=== PATIENT | male | born 1950 | race Caucasian/White ===

== ENCOUNTER 2017-02-09 13:44 | Inpatient (IN) | payer MEDICARE, BC ==
[2017-02-09] VITALS (8 sets, daily range): BP systolic 149–178; BP diastolic 78–88; PULSE 80–92; RESP 17–18; TEMP 96.1–98; O2SAT 96–99
[~2017-02-09] VITALS: Ht 175.3 cm; Wt 87.1 kg
[2017-02-09] MEDS ORDERED: HYDROmorphone HCL PF 1 MG/ML VIAL ONE (13:50)
[2017-02-09] MEDS ORDERED: ONDANSETRON HCL 4 MG/2 ML VIAL ONE (13:50)
--- NOTE | 2017-02-09 14:06 | PD ---
HPI Chief Complaint: Trauma (Alert) Time Seen by Provider: 14:02 Travel History International Travel<30 days: No Contact w/Intl Traveler<30days: No Traveled to known affect area: No History of Present Illness HPI Middle age male patient presents to the ER as a trauma alert, apparently had gone to cut a tree and an hour later was found on the ground according to family , when EMS got there they noted a right proximal tibial deformity, patient was repetitive questioning, he does not remember the events, just that he was cutting a tree. He denies any other injuries. Modifying Factors: None Associated Signs & Symptoms: Injury while cutting a tree, right tib-fib fracture , altered mental status Risk Factors: None PFSH Past Medical History Medical History: Denies Significant Hx Allergies-Medications (Allergen,Severity, Reaction): Coded Allergies: Iodinated Contrast- Oral and IV Dye (Verified Allergy, Unknown, itching, ) Reported Meds & Prescriptions Reported Meds & Active Scripts Active Reported Zocor (Simvastatin) 40 Mg Tab 40 Mg PO HS Effexor XR 24 HR (Venlafaxine HCl) 150 Mg Cap 150 Mg PO DAILY Review of Systems ROS Limitations: Altered Mental Status Physical Exam Narrative GENERAL: Well-developed middle age white male patient currently in mild distress. Awake, alert, but disoriented. In backboard and c-collar. SKIN: Focused skin assessment warm/dry. HEAD: Atraumatic. Normocephalic. Pupils are equal and reactive bilaterally. EYES: Pupils equal and round. No scleral icterus. No injection or drainage. ENT: No nasal bleeding or discharge. Mucous membranes pink and moist. NECK: Trachea midline. No JVD. In c-collar. CARDIOVASCULAR: Regular rate and rhythm. No murmur appreciated. RESPIRATORY: No accessory muscle use. Clear to auscultation. Breath sounds equal bilaterally. CHEST: Nontender throughout without deformity or crepitance. No retractions or use of accessory muscles. GASTROINTESTINAL: Abdomen soft, non-tender, nondistended. Hepatic and splenic margins not palpable. Pelvis: Stable and nontender to palpation. No obvious deformities. EXTREMITIES: No clubbing, cyanosis, or edema. There is notable deformity to the proximal tibia which is tender to palpation, neurovascularly intact below injury. MUSCULOSKELETAL: No obvious deformities. No clubbing. No cyanosis. No edema. NEUROLOGICAL: Awake and alert. No obvious cranial nerve deficits. Motor grossly within normal limits. Normal speech. PSYCHIATRIC: Appropriate mood and affect; insight and judgment normal. Data Data Last Documented VS Vital Signs Date Time Temp Pulse Resp B/P (MAP) Pulse Ox O2 Delivery O2 Flow Rate FiO2 02/09/17 14:38 97.8 86 17 160/79 (106) 99 Room Air 02/09/17 14:30 2.00 Orders Orders I-Stat Profile (02/09/17 13:49) I-Stat Creatinine (02/09/17 13:49) Complete Blood Count With Diff (02/09/17 13:49) Prothrombin Time / Inr (Pt) (02/09/17 13:49) Act Partial Throm Time (Ptt) (02/09/17 13:49) Type And Screen (02/09/17 13:49) Chest, Single Ap (02/09/17 13:49) Pelvis, Ap Only (Routine) (02/09/17 13:49) Ct Brain W/O Iv Contrast(Rout) (02/09/17 13:49) Ct Cerv Spine W/O Contrast (02/09/17 13:49) Iv Access Insert/Monitor (02/09/17 13:49) Ecg Monitoring (02/09/17 13:49) Oximetry (02/09/17 13:49) Oxygen Administration (02/09/17 13:49) Tibia/Fibula (Ap/Lat) (02/09/17 ) Hydromorphone Pf Inj (Dilaudid Pf Inj) (02/09/17 13:50) Ondansetron Inj (Zofran Inj) (02/09/17 13:50) Ct Abd/Pel W/O Iv Contrast (02/09/17 ) Ice Cuff (02/09/17 ) Splint Post Long Leg Ad Alum (02/09/17 ) Admit Order (Ed Use Only) (02/09/17 14:54) Consult Orthopedic (02/09/17 ) Labs Laboratory Tests Test 02/09/17 13:50 White Blood Count 8.1 TH/MM3 Red Blood Count 4.42 MIL/MM3 Hemoglobin 14.2 GM/DL Bedside Hemoglobin 13.6 G/DL Hematocrit 41.5 % Bedside Hematocrit 40.0 % Mean Corpuscular Volume 93.8 FL Mean Corpuscular Hemoglobin 32.1 PG Mean Corpuscular Hemoglobin Concent 34.3 % Red Cell Distribution Width 13.2 % Platelet Count 238 TH/MM3 Mean Platelet Volume 8.0 FL Neutrophils (%) (Auto) 61.0 % Lymphocytes (%) (Auto) 30.5 % Monocytes (%) (Auto) 7.5 % Eosinophils (%) (Auto) 0.7 % Basophils (%) (Auto) 0.3 % Neutrophils # (Auto) 5.0 TH/MM3 Lymphocytes # (Auto) 2.5 TH/MM3 Monocytes # (Auto) 0.6 TH/MM3 Eosinophils # (Auto) 0.1 TH/MM3 Basophils # (Auto) 0.0 TH/MM3 CBC Comment DIFF FINAL Differential Comment Bedside Sodium 142 MMOL/L Bedside Potassium 4.1 MMOL/L Bedside Chloride 104 MMOL/L Bedside Blood Urea Nitrogen 14 MG/DL Bedside Creatinine 1.1 MG/DL Bedside Glucose 132 MG/DL [facility] Medical Screen Exam Complete: Yes Emergency Medical Condition: Yes Medical Record Reviewed: Yes EKG Prior to Arrival: Yes Interpretation(s) Laboratory Tests Test 02/09/17 13:50 Red Blood Count 4.42 MIL/MM3 (4.50-5.90) Bedside Glucose 132 MG/DL (60-95) Last 24 hours Impressions Pelvis X-Ray 02/09/17 1349 Signed Impressions: Service Date/Time: January 13:37 - CONCLUSION: 1. No acute fracture identified. Dick Gallego MD Head CT 02/09/17 1349 Signed Impressions: Service Date/Time: January 14:04 - CONCLUSION: No acute disease. Pierre Barnes MD Chest X-Ray 02/09/17 1349 Signed Impressions: Service Date/Time: January 13:37 - CONCLUSION: 1. No acute abnormality identified. Dick Gallego MD Cervical Spine CT 02/09/17 1349 Signed Impressions: Service Date/Time: January 14:06 - CONCLUSION: No evidence of acute fracture. Chronic degenerative disease at the C5-6 level with narrowing and osteophyte formation. Central disc protrusionat the C4-5 level and a broad-based diffuse annular bulge at C6-7. Ole Martin MD Tibia/Fibula X-Ray 02/09/17 0000 Signed Impressions: Service Date/Time: January 13:37 - CONCLUSION: 1. Fractures of the tibia and fibula as above. Dick Gallego MD Abdomen/Pelvis CT 02/09/17 0000 Signed Impressions: Service Date/Time: January 14:11 - CONCLUSION: Normal examination. Ole Martin MD Differential Diagnosis Tib-fib fracture versus dislocations versus intracranial injuries versus concussion Narrative Course Case was discussed with trauma DrMary Kate Silvestre who states he will see the patient. X-ray show a comminuted left tib-fib fracture, and the leg was placed in a long-leg splint for stabilization. Patient is neurovascularly intact with good pulses. Orthopedics Dr. Linton as been contacted. Other CAT scans and x- rays did not show any signs of acute injuries. Planning to admit to trauma, case discussed with Dr Silvestre who agrees to admit. Trauma Alert - Level One Trauma Alert Level One: Full trauma team activate, Patient evaluated, Trauma surgeon summoned Time Surgeon Summoned: 13:20 Time Anesthesiologist Summoned: 13:23 Diagnosis Diagnosis: Primary Impression: Tibia/fibula fracture Additional Impression: Head injury Admitting Physician Requests: Admit Dustin Boyd MD Feb 09, 2017 14:06
--- NOTE | 2017-02-09 14:13 | RADRPT ---
EXAM DATE/TIME: 02/09/2017 13:37 [facility] COMPARISON: No previous studies available for comparison. INDICATIONS : Trauma Alert. MEDICAL HISTORY : Non-responsive. SURGICAL HISTORY : Non-responsive. ENCOUNTER: Initial ACUITY: 1 day PAIN SCORE: Non-responsive. LOCATION: Bilateral chest FINDINGS: The heart is at the upper limits of normal in size. There are chronic interstitial changes within the pulmonary parenchyma. The mediastinal contours are within normal limits. No pneumothorax is seen. Th e visualized bony structures are grossly intact. CONCLUSION: 1. No acute abnormality identified. Dick Gallego MD on February 09, 2017 at 14:11 Board Certified Radiologist. This report was verified electronically.
--- NOTE | 2017-02-09 14:14 | RADRPT ---
EXAM DATE/TIME: 02/09/2017 13:37 [facility] COMPARISON: No previous studies available for comparison. INDICATIONS : Trauma Alert. MEDICAL HISTORY : Non-responsive SURGICAL HISTORY : Non-responsive. ENCOUNTER: Initial ACUITY: 1 day PAIN SCORE: Non-responsive. LOCATION: Pelvis FINDINGS: Single view pelvis is provided. There is hardware overlying the patient's low pelvis. No definite fra cture is seen. There are mild degenerative changes in the hips bilaterally. CONCLUSION: 1. No acute fracture identified. Dick Gallego MD on February 09, 2017 at 14:12 Board Certified Radiologist. This report was verified electronically.
--- NOTE | 2017-02-09 14:15 | RADRPT ---
EXAM DATE/TIME: 02/09/2017 13:37 [facility] COMPARISON: No previous studies available for comparison. INDICATIONS : Trauma Alert. MEDICAL HISTORY : Non-responsive. SURGICAL HISTORY : Non-responsive. ENCOUNTER: Initial ACUITY: 1 day PAIN SCORE: Non-responsive. LOCATION: Left tib fib FINDINGS: AP and lateral views demonstrate a severely comminuted, moderately displaced and angulated fracture i nvolving the proximal left tibia. There is a one aren't present displaced, foreshortened fracture inv olving the proximal left fibula. The remainder the visualized osseous structures are intact. CONCLUSION: 1. Fractures of the tibia and fibula as above. Dick Gallego MD on February 09, 2017 at 14:13 Board Certified Radiologist. This report was verified electronically.
[2017-02-09 14:16] LABS: BASOPHIL % 0.3 % (0.0-2.0); EOSINOPHIL # 0.1 TH/MM3 (0-0.4); EOSINOPHIL % 0.7 % (0.0-4.0); HEMATOCRIT 41.5 % (39.0-51.0); HEMO FLAGS DIFF FINAL; LYMPH % 30.5 % (9.0-44.0); LYMPHOCYTE # 2.5 TH/MM3 (1.0-4.8); MEAN CELL VOLUME 93.8 FL (80.0-100.0); MEAN CORPUSCULAR HEMOGLOBIN 32.1 PG (27.0-34.0); MEAN CORPUSCULAR HGB CONC 34.3 % (32.0-36.0); MONO % 7.5 % (0.0-8.0); PLATELET COUNT 238 TH/MM3 (150-450); RED BLOOD COUNT 4.42 MIL/MM3 (4.50-5.90); RED CELL DISTRIBUTION WIDTH 13.2 % (11.6-17.2); WHITE BLOOD COUNT 8.1 TH/MM3 (4.0-11.0)
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
[2017-02-09 14:22] LABS: I-STAT POTASSIUM 4.1 MMOL/L (3.5-4.9)
[2017-02-09] MEDS ORDERED: EFFE150C PO (14:37)
[2017-02-09] MEDS ORDERED: ZOCO40TA PO (14:37)
--- NOTE | 2017-02-09 14:39 | RADRPT ---
EXAM DATE/TIME: 02/09/2017 14:06 [facility] COMPARISON: No previous studies available for comparison. INDICATIONS : Trauma alert, fall from tree. RADIATION DOSE: 18.58 CTDIvol (mGy) MEDICAL HISTORY : Non-responsive. SURGICAL HISTORY : Non-responsive. ENCOUNTER: Initial ACUITY: 1 day PAIN SCALE: Non-responsive LOCATION: neck TECHNIQUE: Volumetric scanning of the cervical spine was performed. Multiplanar reconstructions in the sagittal, coronal and oblique axial planes were performed. Using automated exposure control and adjustment o f the mA and/or kV according to patient size, radiation dose was kept as low as reasonably achievable to obtain optimal diagnostic quality images. DICOM format image data is available electronically f or review and comparison. FINDINGS: VERTEBRAE: Normal vertebral body height. Moderate intervertebral disc space narrowing at the C5-6 level ALIGNMENT: No evidence of subluxation. C2-C3: The bony spinal canal is normal in size. No evidence of disc bulge or herniation. The neural forami na are bilaterally patent. C3-C4: The bony spinal canal is normal in size. No evidence of disc bulge or herniation. The neural forami na are bilaterally patent. C4-C5: The bony spinal canal is normal in size. Small central disc protrusion. No evidence of disc herniat ion. The neural foramina are bilaterally patent. C5-C6: The bony spinal canal is normal in size. No evidence of disc bulge or herniation. The neural forami na are bilaterally patent. C6-C7: Broad-based diffuse annular bulge flattens the thecal sac. No evidence of disc bulge or herniation. The neural foramina are bilaterally patent. C7-T1: The bony spinal canal is normal in size. No evidence of disc bulge or herniation. The neural forami na are bilaterally patent. CONCLUSION: No evidence of acute fracture. Chronic degenerative disease at the C5-6 level with narrowing and oste ophyte formation. Central disc protrusionat the C4-5 level and a broad-based diffuse annular bulge at C6-7. Ole Martin MD on February 09, 2017 at 14:35 Board Certified Radiologist. This report was verified electronically.
--- NOTE | 2017-02-09 14:41 | RADRPT ---
EXAM DATE/TIME: 02/09/2017 14:11 [facility] COMPARISON: No previous studies available for comparison. INDICATIONS : Trauma alert, fall from tree. ORAL CONTRAST: No oral contrast ingested. RADIATION DOSE: 14.23 CTDIvol (mGy) MEDICAL HISTORY : Non-responsive. SURGICAL HISTORY : Non-responsive. ENCOUNTER: Initial ACUITY: 1 day PAIN SCALE: Non-responsive LOCATION: abdomen TECHNIQUE: Volumetric scanning of the abdomen and pelvis was performed. Using automated exposure control and ad justment of the mA and/or kV according to patient size, radiation dose was kept as low as reasonably achievable to obtain optimal diagnostic quality images. DICOM format image data is available electro nically for review and comparison. FINDINGS: LOWER LUNGS: The visualized lower lungs are clear. LIVER: Homogeneous density without lesion. There is no dilation of the biliary tree. No calcified gallston es. SPLEEN: Normal size without lesion. PANCREAS: Within normal limits. KIDNEYS: Normal in size and shape. There is no mass, stone, or hydronephrosis except for kidney stone left lo wer pole. ADRENAL GLANDS: Within normal limits. VASCULAR: There is no aortic aneurysm. BOWEL/MESENTERY: The stomach, small bowel, and colon demonstrate no acute abnormality. There is no free intraperitone al air or fluid. ABDOMINAL WALL: Within normal limits. RETROPERITONEUM: There is no lymphadenopathy. BLADDER: No wall thickening or mass. REPRODUCTIVE: Within normal limits. INGUINAL: There is no lymphadenopathy or hernia. MUSCULOSKELETAL: Within normal limits for patient age. CONCLUSION: Normal examination. Ole Martin MD on February 09, 2017 at 14:39 Board Certified Radiologist. This report was verified electronically.
[2017-02-09] MEDS ORDERED: oxyCODONE/ACETAMINOPHEN 5 MG/325 MG TAB PO PRN (15:15)
[2017-02-09] MEDS ORDERED: NALOXONE HCL 0.4 MG/ML AMP IV PUSH PRN (15:15)
[2017-02-09] MEDS ORDERED: MORPHINE SULFATE 4 MG/ML INJ IV PUSH PRN (15:15)
[2017-02-09] MEDS ORDERED: SODIUM CHLORIDE 0.9% FLUSH 10 ML FLUSH IV FLUSH PRN (15:15)
[2017-02-09] MEDS ORDERED: Post-op Orders (for Pharmacy) MISC XX ONE (15:15)
[2017-02-09] MEDS: SODIUM CHLOR 0.9% 1000 ML INJ 1,000 ML IV SCH (15:52)
[2017-02-09 15:59] LABS: APTT (PATIENT) 20.5 SEC (24.3-30.1)
[2017-02-09] MEDS ORDERED: ENOXAPARIN SODIUM 40 MG/0.4 ML SYRINGE SQ SCH (17:00)
[2017-02-09] MEDS: FAMOTIDINE 20 MG TAB PO SCH (21:00)
[2017-02-09] MEDS: MAGNESIUM HYDROXIDE SUSP 30 ML CUP PO SCH (21:00)
--- NOTE | 2017-02-09 22:40 | MH ---
cc: MD HERNANDEZ,[facility] DATE OF ADMISSION 02/09/[address] Silvestre ADMISSION DIAGNOSIS Comminuted right proximal tib-fib fracture and retrograde amnesia. HISTORY OF PRESENT DISEASE This middle-aged male presented to the emergency room as a trauma alert. Apparently, the patient was cutting some trees and was found on the ground according to family. We do not know what happened to him. He is noted to have right proximal pretibial swelling and deformity. Does not remember anything and keeps repeating questions, awake, alert, however. Does not complain about any other pain. PAST MEDICAL HISTORY Hypercholesterolemia. PAST SURGICAL HISTORY Negative. MEDICATIONS 1. Zocor. 2. Effexor. ALLERGIES IODINE BUT UNKNOWN REALLY. SOCIAL HISTORY Noncontributory. PHYSICAL EXAMINATION GENERAL: Reveals a middle-aged male in no acute distress. HEENT: Normocephalic. No trauma to the head. Pupils equally reactive. Extraocular muscles intact. No hemotympanum. No Mead sign or raccoon's eyes. NECK: Bilateral carotid pulses. No bruits. No signs of trauma to the neck. CHEST: Bilateral breath sounds. HEART: Regular rhythm. No signs of trauma to the chest. Hemodynamically, the patient is intact. ABDOMEN: Soft. Active bowel sounds. No rebound. No guarding. No masses. No signs of trauma to the abdomen. Pelvis appears to be stable. EXTREMITIES: The patient has bilateral femoral, popliteal, dorsalis pedis, posterior tibial pulses. He is very tender at the proximal tibia where there is swelling and slight deformity consistent with fracture, underlying, that has __ fracture of the same. NEUROLOGIC EXAMINATION: The patient is awake, alert and oriented, however, keeps repeating some of the questions and clearly does not remember any accidents. Moves all four extremities with limitation of the right leg which is tender. BACK: The patient is turned to the back, is log-rolled and no acute back injury is noted. The patient ___ to the trauma principals, taken to CT scan for further workup. FINAL DIAGNOSIS Right comminuted tib-fib closed fracture and loss of consciousness, retrograde amnesia. The patient is admitted to trauma service, further care per clinical indices. Eladia Silvestre SJ/EO /6:03 PM /10:21 PM
[2017-02-10 00:18] VITALS: BP 153/79; PULSE 83; RESP 18; TEMP 98.7; O2SAT 96
[2017-02-10 03:35] VITALS: BP 158/75; PULSE 84; RESP 18; TEMP 99.7; O2SAT 98
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
[2017-02-10 07:30] LABS: AUTOMATED NEUTROPHIL # 3.2 TH/MM3 (1.8-7.7); BASOPHIL % 0.3 % (0.0-2.0); EOSINOPHIL % 0.5 % (0.0-4.0); HEMATOCRIT 38.3 % (39.0-51.0); HEMO FLAGS DIFF FINAL; LYMPH % 27.9 % (9.0-44.0); LYMPHOCYTE # 1.5 TH/MM3 (1.0-4.8); MEAN CORPUSCULAR HEMOGLOBIN 32.1 PG (27.0-34.0); MEAN CORPUSCULAR HGB CONC 34.2 % (32.0-36.0); NEUT % 59.3 % (16.0-70.0); PLATELET COUNT 207 TH/MM3 (150-450); RED BLOOD COUNT 4.07 MIL/MM3 (4.50-5.90); RED CELL DISTRIBUTION WIDTH 13.3 % (11.6-17.2); WHITE BLOOD COUNT 5.4 TH/MM3 (4.0-11.0)
[2017-02-10] MEDS ORDERED: ENALAPRILAT 1.25 MG/ML VIAL IV PUSH PRN (07:45)
[2017-02-10 07:49] LABS: BICARBONATE 25.6 MEQ/L (21.0-32.0); POTASSIUM 4.1 MEQ/L (3.5-5.1)
[2017-02-10] MEDS ORDERED: GENTAMICIN SULFATE 80 MG/2 ML VIAL ONE (08:51)
[2017-02-10] MEDS ORDERED: FAMOTIDINE 20 MG/2 ML VIAL ONE ×2 (08:58→10:22)
[2017-02-10] MEDS ORDERED: ACETAMINOPHEN 1000 MG/100 ML 100 ML IV ONE ×2 (08:58→10:22)
[2017-02-10] MEDS: FAMOTIDINE 20 MG TAB PO SCH ×2 (09:00→22:17)
[2017-02-10] MEDS: DOCUSATE SODIUM 100 MG CAP PO SCH ×2 (09:00→22:16)
--- NOTE | 2017-02-10 09:06 | HHI.PR ---
Subjective Subjective Notes PTD: 1 0915: In OR. 1005: In OR 1100: In OR Objective Vitals/I&O Vital Signs Date Time Temp Pulse Resp B/P (MAP) Pulse Ox O2 Delivery O2 Flow Rate FiO2 02/10/17 03:35 99.7 84 18 158/75 (102) 98 02/09/17 16:55 Nasal Cannula 2.00 Labs Laboratory Tests Test 02/09/17 13:50 02/09/17 15:00 02/10/17 06:41 White Blood Count 8.1 5.4 Red Blood Count 4.42 4.07 Hemoglobin 14.2 13.1 Bedside Hemoglobin 13.6 Hematocrit 41.5 38.3 Bedside Hematocrit 40.0 Mean Corpuscular Volume 93.8 94.0 Mean Corpuscular Hemoglobin 32.1 32.1 Mean Corpuscular Hemoglobin Concent 34.3 34.2 Red Cell Distribution Width 13.2 13.3 Platelet Count 238 207 Mean Platelet Volume 8.0 7.1 Neutrophils (%) (Auto) 61.0 59.3 Lymphocytes (%) (Auto) 30.5 27.9 Monocytes (%) (Auto) 7.5 12.0 Eosinophils (%) (Auto) 0.7 0.5 Basophils (%) (Auto) 0.3 0.3 Neutrophils # (Auto) 5.0 3.2 Lymphocytes # (Auto) 2.5 1.5 Monocytes # (Auto) 0.6 0.7 Eosinophils # (Auto) 0.1 0.0 Basophils # (Auto) 0.0 0.0 CBC Comment DIFF FINAL DIFF FINAL Differential Comment Bedside Sodium 142 Bedside Potassium 4.1 Bedside Chloride 104 Bedside Blood Urea Nitrogen 14 Bedside Creatinine 1.1 Bedside Glucose 132 Prothrombin Time 11.0 Prothromb Time International Ratio 1.0 Activated Partial Thromboplast Time 20.5 Blood Urea Nitrogen 9 Creatinine 0.91 Random Glucose 111 Calcium Level 8.5 Sodium Level 138 Potassium Level 4.1 Chloride Level 106 Carbon Dioxide Level 25.6 Anion Gap 6 Estimat Glomerular Filtration Rate 72 Radiology Last Impressions Pelvis X-Ray 02/09/17 1349 Signed Impressions: Service Date/Time: January 13:37 - CONCLUSION: 1. No acute fracture identified. Dick Gallego MD Head CT 02/09/17 1349 Signed Impressions: Service Date/Time: January 14:04 - CONCLUSION: No acute disease. Pierre Barnes MD Chest X-Ray 02/09/17 1349 Signed Impressions: Service Date/Time: , February 09, 2017 13:37 - CONCLUSION: 1. No acute abnormality identified. Dick Gallego MD Cervical Spine CT 02/09/17 1349 Signed Impressions: Service Date/Time: , February 09, 2017 14:06 - CONCLUSION: No evidence of acute fracture. Chronic degenerative disease at the C5-6 level with narrowing and osteophyte formation. Central disc protrusionat the C4-5 level and a broad-based diffuse annular bulge at C6-7. Ole Martin MD Tibia/Fibula X-Ray 02/09/17 0000 Signed Impressions: Service Date/Time: January 13:37 - CONCLUSION: 1. Fractures of the tibia and fibula as above. Dick Gallego MD Abdomen/Pelvis CT 02/09/17 0000 Signed Impressions: Service Date/Time: January 14:11 - CONCLUSION: Normal examination. Ole Martin MD Narrative Exam IN OR A/P Problem List: (1) Head injury ICD Codes: S09.90XA - Unspecified injury of head, initial encounter Status: Acute (2) Tibia/fibula fracture ICD Codes: S82.209A - Unspecified fracture of shaft of unspecified tibia, initial encounter for closed fracture; S82.409A - Unspecified fracture of shaft of unspecified fibula, initial encounter for closed fracture Status: Acute Assessment and Plan [facility]: This is a this is a 66-year-old male who was up and cutting a tree, and then was found down on the ground an hour later. Repetitive questioning. INJURIES: CHI LEFT tib/fib fx Procedures: *02/10: LEFT tibia IM Nail Consults: Orthopedics. Case management. Diet: Regular diet. Tolerating po diet. Encourage good po intake with each meal. Pulmonary: Encourage good pulmonary toileting. IS at bedside and pt encouraged to use. Rationale for use explained to patient, and verbalized understanding. PAIN Management: [place] 10 mg every 3 hours. Morphine 4 mg every 3 hours breakthrough pain. Toradol 30 mg every 8 hours. Activity: OOB. PT and OT ordered. (NWB LLE) GI prophylaxis: Pepcid BID. Bowel regimen: Colace and MOM. LBM: 0 DVT prophylaxis: Mechanical VTE with SCDs. Chemical management with Lovenox 40 QD SQ. DC Planning: Case management consulted for assistance with final discharge disposition. Emotional support provided to patient and family at bedside and plan of care discussed. Discussed with RN at bedside. Patient is hemodynamically stable and being managed on the med/surg floor. The trauma team will round each day, and evaluate plan of care on a daily basis. RIGHT tib/fib fx Orthopedics consulted and assisting in management and care 02/10: LEFT tibia IM nail Pain management PT and OT ordered Encourage out of bed NWB LLE DVT prophylaxis Attending Statement The exam, history, and the medical decision-making described in the above note were completed with the assistance of the mid-level provider. I reviewed and agree with the findings presented. I attest that I had a [id number] encounter with the patient on the same day, and personally performed and documented my assessment and findings in the medical record. Abdominal exam: soft, non-tender on exam s/p orthopedic surgery, pain controlled, working with PT Problem Qualifiers (1) Head injury: Qualified Codes: S09.90XA - Unspecified injury of head, initial encounter (2) Tibia/fibula fracture: Qualified Codes: S82.209A - Unspecified fracture of shaft of unspecified tibia , initial encounter for closed fracture; S82.409A - Unspecified fracture of shaft of unspecified fibula, initial encounter for closed fracture Mariela Montiel Feb 10, 2017 09:06 Jone Sweet MD Feb 28, 2017 23:43
[2017-02-10] MEDS ORDERED: ceFAZolin 2 GM PREMIX 50 ML ONE (09:18)
[2017-02-10] MEDS ORDERED: VANCOMYCIN HCL 1000 MG VIAL ONE (09:18)
[2017-02-10] MEDS ORDERED: MIDAZOLAM HCL 2 MG/2 ML VIAL ONE (10:22)
[2017-02-10] MEDS ORDERED: MORPHINE SULFATE 4 MG/ML INJ IV PUSH PRN (10:45)
--- NOTE | 2017-02-10 10:48 | PD.OP ---
cc: Jesse Linton MD Operative Report Date of Surgery: Feb 10, 2017 Preoperative Diagnosis: Displaced left proximal tibial shaft fracture Postoperative Diagnosis: Procedure: Left tibia reduction and intramedullary nail fixation Anesthesia: Gen. Surgeon: Jesse Linton [employer] Physician(s): ALLI Armendariz PA-C The surgical procedure was assisted by my physician malt specifications control assistant. My P.A. presence was necessary throughout this case for the manipulation and positioning of the surgical extremity. My P.A. was assisting me throughout the duration of this procedure. The skill set of a physician malt specifications control assistant was medically necessary to complete this procedure. During the surgical case the automotive engineering technician was working at the back table and the physician malt specifications control assistant was directly assisting me. Operation and Findings: Implants: ITS [10]mm x [360]mm tibial nail Plan of activity: Nonweightbearing Patient was seen and examined preoperatively. An informed consent was obtained from patient after detailed discussion of risk and benefits. Risks of surgery include bleeding, infection, painful hardware, nonunion, malunion, leg length discrepancy, need for hardware removal, and medical complications associated with anesthesia including blood clots, stroke, heart attack, and were discussed. Operative site was marked. Patient was brought to the operating room placed on or table. Patient received IV antibiotics and was given IV sedation GETA. Operative leg was prepped with alcohol Hibiclens and draped in usual sterile fashion. Timeout procedure was performed Procedure began with reduction of fracture. 2 small incisions were made around the fracture site. A percutaneous clamp was placed. Traction was applied. Fracture was reduced. There was comminution of the fracture. The fracture reduced and excellent alignment was achieved. Fracture clamp was used to aid in reduction. Additional per case incisions were made around the fracture site. A 2 mm Steinmann pins were placed as blocking pins from anterior to posterior as well as from medial to lateral. Next a 3 cm incision was made proximal to the patella. Quadriceps tendon was split in line with fibers. Cannulas were placed in the patellofemoral joint to protect the articular surface at all times. A guidepin was placed into the tibia and advanced in the tibial canal. Fluoroscopy was used to confirm appropriate guidepin placement. An opening reamer was used to open the tibial canal. A ball-tipped guidewire was advanced down the tibial canal. Guidepin was passed across the fracture site into the center of the distal tibia. Fluoroscopy confirmed guidepin placement. The nail length was now measured. The fracture was now held in a reduced position and the canal was reamed. The canal was reamed up to appropriate size. A ITS nail was now selected. Next the nail was fully seated. Using perfect united [place] technique 2 distal interlocking screws were placed. Using the insertion handle as a guide 4 proximal interlocking screws were placed. The blocking pins were now removed and replaced with screws for additional stability. Fluoroscopy confirmed excellent of fracture with well- placed hardware. Incisions and the knee joint were thoroughly irrigated with sterile saline. Fascia was closed with #1 Vicryl, subcutaneous tissues closed with 3-0 Vicryl and skin was closed with lorie. Sterile dressings were applied. Patient was awakened and transferred to recovery in stable condition. Jesse Linton MD Feb 10, 2017 10:48
[2017-02-10] MEDS ORDERED: DO NOT ADM ANY ANTICOAGULANT DRUGS PRN (11:02)
--- NOTE | 2017-02-10 11:08 | PD.ORT.PN ---
Subjective Subjective Remarks POD 0 s/p IMN left tibia stable postoperatively Objective Vitals Vital Signs Date Time Temp Pulse Resp B/P (MAP) Pulse Ox O2 Delivery O2 Flow Rate FiO2 02/10/17 03:35 99.7 84 18 158/75 (102) 98 02/10/17 00:18 98.7 83 18 153/79 (103) 96 02/09/17 19:48 98.0 80 18 149/78 (101) 99 02/09/17 17:00 96.1 92 18 178/88 (118) 96 02/09/17 16:55 97.8 78 17 150/82 (104) 98 Nasal Cannula 2.00 02/09/17 15:58 16 02/09/17 15:48 97 Nasal Cannula 3.00 02/09/17 15:20 98.0 92 17 172/81 (111) 98 Nasal Cannula 2.00 02/09/17 14:38 97.8 86 17 160/79 (106) 99 Room Air 02/09/17 14:30 99 Nasal Cannula 2.00 02/09/17 14:30 18 99 Nasal Cannula 2.00 02/09/17 14:21 96 2.00 I/O 02/09/17 02/09/17 02/09/17 02/10/17 02/10/17 02/10/17 07:00 15:00 23:00 07:00 15:00 23:00 Intake Total 360 ml 0 ml 1300 ml Output Total 475 ml 100 ml Balance 360 ml -475 ml 1200 ml Intake Oral 360 ml 0 ml Other 1300 ml Output Urine Total 475 ml Estimated Blood Loss 100 ml # Voids 1 # Bowel Movements 0 0 Result Diagram: 02/10/17 0641 02/10/17 0641 Other Results Laboratory Tests Test 02/09/17 15:00 Prothromb Time International Ratio 1.0 RATIO Prothrombin Time 11.0 SEC (9.8-11.6) Imaging Last 24 hours Impressions Pelvis X-Ray 02/09/171348 Signed Impressions: Service Date/Time: January 13:37 - CONCLUSION: 1. No acute fracture identified. Dick Gallego MD Head CT 02/09/171348 Signed Impressions: Service Date/Time: January 14:04 - CONCLUSION: No acute disease. Pierre Barnes MD Chest X-Ray 02/09/179 Signed Impressions: Service Date/Time: January 13:37 - CONCLUSION: 1. No acute abnormality identified. Dick Gallego MD Cervical Spine CT 02/09/179 Signed Impressions: Service Date/Time: , February 09, 2017 14:06 - CONCLUSION: No evidence of acute fracture. Chronic degenerative disease at the C5-6 level with narrowing and osteophyte formation. Central disc protrusionat the C4-5 level and a broad-based diffuse annular bulge at C6-7. Ole Martin MD Objective Remarks LLE: dressings clean and dry. intact. noticeable swelling of lateral compartment Assessment & Plan Problem List: (1) Tibia/fibula fracture ICD Codes: S82.209A - Unspecified fracture of shaft of unspecified tibia, initial encounter for closed fracture; S82.409A - Unspecified fracture of shaft of unspecified fibula, initial encounter for closed fracture Status: Acute Assessment and Plan 1) Left proximal tibia shaft fracture s/p IMN - POD 0 -NWB -daily dressing changes -monitory swelling of lower leg -elevate -large ice bags -Toradol 30mg Q8hrs x 3 doses -when swelling appropriate and patient ambulating safely, ok for DC planning to home -CM for walker -f/u with Hoang or KEVIN in 2 weeks Graham Perez Feb 10, 2017 11:08
[2017-02-10] MEDS ORDERED: MEPERIDINE HCL 25 MG/ML VIAL ONE (11:12)
[2017-02-10] MEDS ORDERED: *morphine SULFATE 8 MG/ML PERIprocedure ONLY ONE ×2 (11:23→11:47)
[2017-02-10] MEDS: LACTATED RINGER'S 1000 ML INJ 1,000 ML IV SCH ×2 (11:30→22:00)
[2017-02-10 12:00] VITALS: BP 148/76; PULSE 105; RESP 18; TEMP 98.9; O2SAT 92
[2017-02-10] MEDS ORDERED: NEOSTIGMINE 3 MG/3 ML SYR IV ONE (12:00)
[2017-02-10] MEDS ORDERED: ROCURONIUM INJ 50 MG/5 ML SYRINGE IV PUSH ONE (12:00)
[2017-02-10] MEDS ORDERED: LIDOCAINE HCL 1% PF 5 ML AMPULE OTHER ONE (12:00)
[2017-02-10] MEDS ORDERED: PROPOFOL 200 MG/20 ML AMP IV ONE (12:00)
[2017-02-10] MEDS ORDERED: MIDAZOLAM HCL 2 MG/2 ML VIAL IV ONE (12:00)
[2017-02-10] MEDS ORDERED: ePHEDrine/NS 25 MG/5 ML SYR IV ONE (12:00)
[2017-02-10] MEDS ORDERED: ONDANSETRON HCL 4 MG/2 ML VIAL IV PUSH ONE (12:00)
[2017-02-10] MEDS ORDERED: GLYCOPYRROLATE 1 MG/5 ML SYRINGE IV PUSH ONE (12:00)
[2017-02-10] MEDS ORDERED: KETOROLAC TROMETHAMINE 30 MG/ML (IVP) VIAL IV PUSH ONE (12:00)
[2017-02-10] MEDS ORDERED: DEXAMETHASONE SOD PHOS 4 MG/ML VIAL IV ONE (12:00)
[2017-02-10] MEDS ORDERED: hydrALAZINE HCL 20 MG/ML VIAL IV ONE (12:00)
[2017-02-10] MEDS ORDERED: STERILE WATER FOR INJECTION 20 ML VIAL IV ONE (12:00)
[2017-02-10] MEDS: SODIUM CHLOR 0.9% 1000 ML INJ 1,000 ML IV SCH ×2 (12:00→22:00)
[2017-02-10] MEDS: KETOROLAC TROMETHAMINE 30 MG/ML (IVP) VIAL IVP SCH ×2 (12:47→22:17)
[2017-02-10] MEDS: CALCIUM/VITAMIN D 250 MG/125 U TAB PO SCH ×2 (12:47→17:20)
[2017-02-10] MEDS: VENLAFAXINE HCL XR 75 MG CAP PO SCH (12:47)
[2017-02-10] MEDS ORDERED: ERGOCALCIFEROL (VIT D2) 50,000 UNIT CAP PO SCH (13:00)
[2017-02-10] MEDS: ACETAMINOPHEN/HYDROcodone 325 MG/10 MG TAB PO PRN ×2 (13:02→22:19)
[2017-02-10] MEDS: SODIUM CHLORIDE 0.9% FLUSH 10 ML FLUSH IV FLUSH SCH ×2 (13:06→22:17)
--- NOTE | 2017-02-10 13:47 | EKG ---
Date Performed: 02/10/2017 Time Performed: 08:29:49 PTAGE: 89 years EKG: Sinus rhythm NORMAL ECG INTERPRETATION BASED ON A DEFAULT AGE OF 40 YEARS NO PREVIOUS TRACING DOCTOR: Ernesto Mike Interpretating Date/Time 02/10/2017 13:46:28
--- NOTE | 2017-02-10 14:32 | RADRPT ---
EXAM DATE/TIME: 02/10/2017 10:38 [facility] COMPARISON: TIBIA/FIBULA LEFT (AP/LAT), February 09, 2017, 13:37. INDICATIONS : Left tibia/fibula IM pedro. MEDICAL HISTORY : Non-responsive. SURGICAL HISTORY : Non-responsive. ENCOUNTER: Subsequent ACUITY: 1 day PAIN SCORE: Non-responsive. LOCATION: Left tibia/fibula. FINDINGS: Locking nail is seen bridging the fracture of the proximal tibia. Alignment is anatomic. Fibular fr actures again noted.. CONCLUSION: Anatomic alignment with IM pedro in good position. Luis Daniel Gallego MD FACR on February 10, 2017 at 14:30 Board Certified Radiologist. This report was verified electronically.
--- NOTE | 2017-02-10 15:42 | MB ---
cc: JESSE DEJESUS DATE OF CONSULTATION 02/09/1973 REASON FOR CONSULTATION Left proximal tibia and fibula fractures. HISTORY This patient known as Aron Yates is an approximately 60-year-old male who was cutting trees. He was found on the ground. He was found to have left proximal tibia fracture. He had some amnesia around the event. He initially had some mental status changes and confusions at presentation to the emergency room. He is currently awake and alert on the orthopedic floor. He complains of left leg pain. Pain is worse with movement. PAST MEDICAL HISTORY/ILLNESSES High cholesterol. SURGERIES None. MEDICATIONS 1. Zocor. 2. Effexor. ALLERGIES IODINE. SOCIAL HISTORY The patient denies tobacco or drug abuse. FAMILY HISTORY Noncontributory. REVIEW OF SYSTEMS The patient denies headache, visual changes, neck pain, chest pain, shortness of breath, abdominal pain, nausea, vomiting or recent weight loss. He complains of left leg pain. PHYSICAL EXAMINATION GENERAL: The patient is a pleasant male in no acute distress. He is awake and alert. He appears well-developed, well-nourished. VITAL SIGNS: Temperature 99.7, pulse 84, respirations 18, blood pressure 158/75, O2 sat 98% on 2 liters nasal cannula. HEAD: The patient is normocephalic. Pupils are equal. NECK: Soft, nontender. Trachea is midline. ABDOMEN: Soft, nontender, nondistended. EXTREMITIES: Examination of bilateral upper extremities reveals no obvious pain or deformity with shoulder, elbow or wrist motion. He has intact sensation in all fingers. He has good cap refill fingers. Window Decorator strength is +5. Radial pulses are palpable. Examination of right leg reveals no pain with hip, knee or ankle motion. Skin is intact. Dorsalis pedis pulses palpable. Sensation is intact. Examination of left leg reveals no tenderness on his hip. He is diffusely tender around the knee, calf and thigh compartments are soft. There is mild swelling around the knee. Skin is intact. Dorsalis pedis pulses palpable. Sensation intact to left foot. He has minimal pain with passive range of motion of his toes or ankle. X-RAYS X-rays of left leg were reviewed. The patient has a mildly comminuted displaced fracture along the proximal left tibia shaft. IMPRESSION Closed left proximal tibia shaft fracture. PLAN The treatment options were discussed with the patient. At this point I would recommend reduction, intramedullary nail fixation of left tibia. The risks of surgery include bleeding, infection, injury to arteries, nerves, blood vessels, nonunion, malunion, painful hardware as well as medical complications including blood clot, stroke, heart attack and . All questions were answered. I will plan on surgery today. All questions were answered. A mid-level provider in my office, nurse practitioner or PA, may see this patient on a follow-up basis and continue to implement the objective of this plan including: Starting or adjusting medications, injections of muscle, tendon, bursa or joints, cast application, orthotic or brace application, physical therapy, further radiographic studies including x-ray, MRI, CT, ultrasounds or bone scan, vascular studies, neurologic studies, or other specialist consultations, and proceeding with surgical management as appropriate. Jesse MD KELSEY Connors/LINDA /10:50 AM /3:28 PM
[2017-02-10 16:00] VITALS: BP 99/62; PULSE 85; RESP 18; TEMP 98.2; O2SAT 95
[2017-02-10] MEDS: ceFAZolin 2 GM PREMIX 50 ML IV SCH (17:20)
[2017-02-10 20:45] VITALS: BP_SYST 136; BP_SYST 140; BP_DIAS 56; BP_DIAS 76; PULSE 86; PULSE 91; RESP 16; RESP 17; TEMP 98; TEMP 98.7; O2SAT 98
[2017-02-10] MEDS ORDERED: DOCU1CAP39 PO (21:10)
[2017-02-10] MEDS ORDERED: WALKER WHEELS/F1 MIS (21:10)
[2017-02-10] MEDS ORDERED: MAGN400S PO (21:10)
--- NOTE | 2017-02-10 21:13 | HHI.FF ---
Face to Face Verification Diagnosis: (1) Head injury (2) Tibia/fibula fracture Physical Therapy Order: Evaluate and Treat, Improve ambulation, Strength and gait training Home Health Nursing Order: Medical education Signs/symptoms of disease process Medication education-adverse effect Nursing assessment with vital signs I have seen patient Artemio Gandhi on 02/10/17. My clinical findings support the need for the requested home health care services because: Ltd mobility - disease progression Deconditioned w/ increased weakness Limited ability to care for self High risk of falls I certify that my clinical findings support that this patient is homebound because: Post-op weakness Unsteady gait/balance Unsafe to leave home unassisted Mariela Montiel Feb 10, 2017 21:13
[2017-02-10] MEDS ORDERED: WHEEMIS3 (21:15)
[2017-02-10] MEDS ORDERED: BEDSIDE COMMODE1 MI1 (21:15)
[2017-02-10] MEDS: MAGNESIUM HYDROXIDE SUSP 30 ML CUP PO SCH (22:16)
[2017-02-10] MEDS: ZOLPIDEM TARTRATE 5 MG TAB PO PRN (22:16)
[2017-02-10] MEDS: PRAVASTATIN SOD 80 MG TAB PO SCH (22:17)
[2017-02-11] VITALS (7 sets, daily range): BP systolic 118–135; BP diastolic 64–81; PULSE 72–87; RESP 16–17; TEMP 97.2–98.8; O2SAT 93–100
[2017-02-11] MEDS: ceFAZolin 2 GM PREMIX 50 ML IV SCH ×2 (01:03→07:28)
[2017-02-11] MEDS: ACETAMINOPHEN/HYDROcodone 325 MG/10 MG TAB PO PRN ×5 (03:41→20:44)
[2017-02-11] MEDS: KETOROLAC TROMETHAMINE 30 MG/ML (IVP) VIAL IVP SCH (06:14)
[2017-02-11] MEDS: CHOLECALCIFEROL (VIT D3) 1000 UNIT TAB PO SCH (07:27)
[2017-02-11] MEDS: FAMOTIDINE 20 MG TAB PO SCH ×2 (07:27→20:44)
[2017-02-11] MEDS: CALCIUM/VITAMIN D 250 MG/125 U TAB PO SCH ×3 (07:28→16:42)
[2017-02-11] MEDS: LACTATED RINGER'S 1000 ML INJ 1,000 ML IV SCH ×2 (07:28→11:04)
[2017-02-11] MEDS: SODIUM CHLOR 0.9% 1000 ML INJ 1,000 ML IV SCH ×2 (07:28→11:05)
[2017-02-11] MEDS: DOCUSATE SODIUM 100 MG CAP PO SCH ×2 (07:28→20:44)
[2017-02-11] MEDS: SODIUM CHLORIDE 0.9% FLUSH 10 ML FLUSH IV FLUSH SCH ×2 (07:28→20:44)
[2017-02-11] MEDS: VENLAFAXINE HCL XR 75 MG CAP PO SCH (07:28)
[2017-02-11] MEDS: ASCORBIC ACID 500 MG TAB PO SCH (07:28)
--- NOTE | 2017-02-11 08:05 | PD.ORT.PN ---
Subjective Post Op Day #: 1 Subjective Remarks pain under control. feeling better. Objective Vitals Vital Signs Date Time Temp Pulse Resp B/P (MAP) Pulse Ox O2 Delivery O2 Flow Rate FiO2 02/11/17 07:32 97.2 81 17 124/66 (85) 96 02/11/17 04:00 97.8 80 16 118/74 (89) 100 02/11/17 00:00 98.6 72 16 131/68 (89) 97 02/10/17 20:45 98.7 91 17 140/76 (97) 98 02/10/17 16:00 98.2 85 18 99/62 (74) 95 02/10/17 12:00 98.9 105 18 148/76 (100) 92 02/10/17 12:00 98 16 152/74 (100) 100 Nasal Cannula 2 02/10/17 11:52 16 02/10/17 11:52 16 02/10/17 11:45 97 16 164/74 (104) 92 Nasal Cannula 2 02/10/17 11:30 91 16 166/79 (108) 94 Room Air 02/10/17 11:28 16 02/10/17 11:15 90 16 172/80 (110) 96 Nasal Cannula 02/10/17 11:02 98.2 93 16 191/89 (123) 100 Simple Mask I/O 02/10/17 02/10/17 02/10/17 02/11/17 02/11/17 02/11/17 07:00 15:00 23:00 07:00 15:00 23:00 Intake Total 0 ml 1900 ml 240 ml 240 ml Output Total 475 ml 600 ml 300 ml 300 ml Balance -475 ml 1300 ml -60 ml -60 ml Intake Oral 0 ml 600 ml 240 ml 240 ml Other 1300 ml Output Urine Total 475 ml 500 ml 300 ml 300 ml Estimated Blood Loss 100 ml # Voids 2 # Bowel Movements 0 0 0 0 Result Diagram: 02/10/1764002/10/17640 Imaging Last 24 hours Impressions Pelvis X-Ray 02/09/171348 Signed Impressions: Service Date/Time: January 13:37 - CONCLUSION: 1. No acute fracture identified. Dick Gallego MD Head CT 02/09/171348 Signed Impressions: Service Date/Time: January 14:04 - CONCLUSION: No acute disease. Pierre Barnes MD Chest X-Ray 02/09/17 1349 Signed Impressions: Service Date/Time: January 13:37 - CONCLUSION: 1. No acute abnormality identified. Dick Gallego MD Cervical Spine CT 02/09/17 1349 Signed Impressions: Service Date/Time: January 14:06 - CONCLUSION: No evidence of acute fracture. Chronic degenerative disease at the C5-6 level with narrowing and osteophyte formation. Central disc protrusionat the C4-5 level and a broad-based diffuse annular bulge at C6-7. Ole Martin MD Objective Remarks LLE: dressings clean and dry. intact. noticeable swelling of lateral compartment. neg homans. nvi. sensation intact. Assessment & Plan Ortho Post Op Day #: 1 Problem List: (1) Tibia/fibula fracture ICD Codes: S82.209A - Unspecified fracture of shaft of unspecified tibia, initial encounter for closed fracture; S82.409A - Unspecified fracture of shaft of unspecified fibula, initial encounter for closed fracture Status: Acute Qualifiers: Qualified Codes: S82.209A - Unspecified fracture of shaft of unspecified tibia, initial encounter for closed fracture; S82.409A - Unspecified fracture of shaft of unspecified fibula, initial encounter for closed fracture Assessment and Plan 1) Left proximal tibia shaft fracture s/p IMN - POD 0 -NWB -daily dressing changes -monitory swelling of lower leg -elevate -large ice bags -Toradol 30mg Q8hrs x 3 doses -when swelling appropriate and patient ambulating safely, ok for DC planning to home. possibly Monday/Monday -CM for walker -f/u with Hoang or PA in 2 weeks Ty Hanks Feb 11, 2017 08:05
[2017-02-11 08:33] LABS: AUTOMATED NEUTROPHIL # 4.9 TH/MM3 (1.8-7.7); BASOPHIL % 0.3 % (0.0-2.0); EOSINOPHIL # 0.1 TH/MM3 (0-0.4); EOSINOPHIL % 0.8 % (0.0-4.0); HEMATOCRIT 35.2 % (39.0-51.0); HEMO FLAGS DIFF FINAL; LYMPH % 26.3 % (9.0-44.0); MEAN CELL VOLUME 95.3 FL (80.0-100.0); MEAN CORPUSCULAR HEMOGLOBIN 32.8 PG (27.0-34.0); MEAN CORPUSCULAR HGB CONC 34.4 % (32.0-36.0); NEUT % 65.6 % (16.0-70.0); PLATELET COUNT 174 TH/MM3 (150-450); RED BLOOD COUNT 3.69 MIL/MM3 (4.50-5.90); RED CELL DISTRIBUTION WIDTH 13.4 % (11.6-17.2); WHITE BLOOD COUNT 7.4 TH/MM3 (4.0-11.0)
[2017-02-11 08:58] LABS: ANION GAP 7 MEQ/L (5-15); AST (GOT) 39 U/L (15-37); BICARBONATE 29.3 MEQ/L (21.0-32.0); BLOOD UREA NITROGEN 14 MG/DL (7-18); CHLORIDE 100 MEQ/L (98-107); GLOMERULAR FILTRATION RATE 63 ML/MIN (>89); POTASSIUM 4.6 MEQ/L (3.5-5.1); SODIUM (NA) 136 MEQ/L (136-145)
[2017-02-11 08:59] LABS: ALT (GPT) 29 U/L (12-78)
[2017-02-11 09:01] LABS: ALKALINE PHOSPHATASE 76 U/L (45-117); TOTAL BILIRUBIN ADULT 0.5 MG/DL (0.2-1.0)
[2017-02-11] MEDS: ENOXAPARIN SODIUM 40 MG/0.4 ML SYRINGE SQ SCH (09:55)
[2017-02-11] MEDS ORDERED: INFLUENZA VIRUS VACCINE (QUADRIVALENT) 0.5 ML SYR IM ONE (10:00)
--- NOTE | 2017-02-11 12:28 | HHI.PR ---
Subjective Subjective Notes PTD: 2 Patient out of bed sitting in recliner chair. Patient states his pain is "better." He states the pain medications are working to control his pain. Objective Vitals/I&O Vital Signs Date Time Temp Pulse Resp B/P (MAP) Pulse Ox O2 Delivery O2 Flow Rate FiO2 02/11/17 11:08 97.7 78 16 121/64 (83) 99 02/10/17 12:00 Nasal Cannula 2 Labs Laboratory Tests Test 02/11/17 07:48 White Blood Count 7.4 Red Blood Count 3.69 Hemoglobin 12.1 Hematocrit 35.2 Mean Corpuscular Volume 95.3 Mean Corpuscular Hemoglobin 32.8 Mean Corpuscular Hemoglobin Concent 34.4 Red Cell Distribution Width 13.4 Platelet Count 174 Mean Platelet Volume 7.8 Neutrophils (%) (Auto) 65.6 Lymphocytes (%) (Auto) 26.3 Monocytes (%) (Auto) 7.0 Eosinophils (%) (Auto) 0.8 Basophils (%) (Auto) 0.3 Neutrophils # (Auto) 4.9 Lymphocytes # (Auto) 2.0 Monocytes # (Auto) 0.5 Eosinophils # (Auto) 0.1 Basophils # (Auto) 0.0 CBC Comment DIFF FINAL Differential Comment Blood Urea Nitrogen 14 Creatinine 1.16 Random Glucose 107 Total Protein 6.3 Albumin 3.3 Calcium Level 9.1 Alkaline Phosphatase 76 Aspartate Amino Transf (AST/SGOT) 39 Alanine Aminotransferase (ALT/SGPT) 29 Total Bilirubin 0.5 Sodium Level 136 Potassium Level 4.6 Chloride Level 100 Carbon Dioxide Level 29.3 Anion Gap 7 Estimat Glomerular Filtration Rate 63 Narrative Exam GENERAL: This is a 66-year-old male out of bed in a recliner chair. No distress noted. Pleasant and cooperative. SKIN: Warm and dry. HEAD: Atraumatic. Normocephalic. EYES: PERRLA ENT: No nasal bleeding or discharge. Mucous membranes pink and moist. NECK: Trachea midline. No JVD. CARDIOVASCULAR: Regular rate and rhythm. RESPIRATORY: No accessory muscle use. Lungs are clear to auscultation. Breath sounds equal bilaterally. No distress or dyspnea. GASTROINTESTINAL: BS + x 4 quads. Abdomen soft, non-tender, nondistended. MUSCULOSKELETAL: Extremities without cyanosis. Dressing in place to left knee - slight edema noted to the left lower extremity. + peripheral pulses x 4 extremities. Warm with good capillary refill and sensation. MAEW. NEUROLOGICAL: Awake and alert. Normal speech and pattern. A/P Problem List: (1) Head injury ICD Codes: S09.90XA - Unspecified injury of head, initial encounter Status: Acute (2) Tibia/fibula fracture ICD Codes: S82.209A - Unspecified fracture of shaft of unspecified tibia, initial encounter for closed fracture; S82.409A - Unspecified fracture of shaft of unspecified fibula, initial encounter for closed fracture Status: Acute Assessment and Plan [place]: This is a this is a 66-year-old male who was up and cutting a tree, and then was found down on the ground an hour later. Repetitive questioning. ( Patient thinks that as he was cutting the tree he was hit by a branch which broke his leg and knocked him down.) INJURIES: [facility]I LEFT tib/fib fx Procedures: *02/10: LEFT tibia IM Nail Consults: Orthopedics. Case management. Diet: Regular diet. Tolerating po diet. Encourage good po intake with each meal. Pulmonary: Encourage good pulmonary toileting. IS at bedside and pt encouraged to use. Rationale for use explained to patient, and verbalized understanding. PAIN Management: Grandin 10 mg every 3 hours. Morphine 4 mg every 3 hours breakthrough pain. Toradol 30 mg every 8 hours. Activity: OOB. PT and OT ordered. (NWB LLE) GI prophylaxis: Pepcid BID. Bowel regimen: Colace and MOM. LBM: 0 DVT prophylaxis: Mechanical VTE with SCDs. Chemical management with Lovenox 40 QD SQ. DC Planning: Case management consulted for assistance with final discharge disposition. Plan for discharge tomorrow as long his pain is controlled and he is ambulating well. Emotional support provided to patient and family at bedside and plan of care discussed. Discussed with RN at bedside. Patient is hemodynamically stable and being managed on the med/surg floor. The trauma team will round each day, and evaluate plan of care on a daily basis. RIGHT tib/fib fx Orthopedics consulted and assisting in management and care 02/10: LEFT tibia IM nail Pain management PT and OT ordered Encourage out of bed NWB LLE Elevate left lower extremity Ices needed DVT prophylaxis Problem Qualifiers (1) Head injury: Qualified Codes: S09.90XA - Unspecified injury of head, initial encounter (2) Tibia/fibula fracture: Qualified Codes: S82.209A - Unspecified fracture of shaft of unspecified tibia , initial encounter for closed fracture; S82.409A - Unspecified fracture of shaft of unspecified fibula, initial encounter for closed fracture Mariela Montiel Feb 11, 2017 12:27
[2017-02-11] MEDS: PRAVASTATIN SOD 80 MG TAB PO SCH (20:44)
[2017-02-11] MEDS: MAGNESIUM HYDROXIDE SUSP 30 ML CUP PO SCH (20:44)
[2017-02-11] MEDS: BISACODYL EC 5 MG TABEC PO SCH (20:44)
[2017-02-11] MEDS: ZOLPIDEM TARTRATE 5 MG TAB PO PRN (21:55)
[2017-02-12] MEDS: ACETAMINOPHEN/HYDROcodone 325 MG/10 MG TAB PO PRN ×6 (00:11→20:41)
[2017-02-12 00:45] VITALS: BP 152/83; PULSE 92; RESP 18; TEMP 99.6; O2SAT 97
[2017-02-12] MEDS: VENLAFAXINE HCL XR 75 MG CAP PO SCH (07:48)
[2017-02-12] MEDS: ASCORBIC ACID 500 MG TAB PO SCH (07:48)
[2017-02-12] MEDS: CALCIUM/VITAMIN D 250 MG/125 U TAB PO SCH ×3 (07:48→17:27)
[2017-02-12] MEDS: CHOLECALCIFEROL (VIT D3) 1000 UNIT TAB PO SCH (07:48)
[2017-02-12] MEDS: DOCUSATE SODIUM 100 MG CAP PO SCH ×2 (07:48→20:42)
[2017-02-12] MEDS: SODIUM CHLORIDE 0.9% FLUSH 10 ML FLUSH IV FLUSH SCH ×2 (07:49→20:41)
[2017-02-12] MEDS: FAMOTIDINE 20 MG TAB PO SCH ×2 (07:49→20:42)
[2017-02-12 08:00] VITALS: BP 108/63; PULSE 91; RESP 20; TEMP 97.8; O2SAT 94
[2017-02-12] MEDS ORDERED: LACTULOSE SYRUP 20 GM/30 ML CUP PO ONE (08:00)
--- NOTE | 2017-02-12 08:03 | PD.ORT.PN ---
Subjective Post Op Day #: 2 Subjective Remarks pain under control. feeling better. wants to go home. Objective Vitals Vital Signs Date Time Temp Pulse Resp B/P (MAP) Pulse Ox O2 Delivery O2 Flow Rate FiO2 02/12/17 00:45 99.6 92 18 152/83 (106) 97 02/11/17 20:40 98.8 87 17 135/81 (99) 95 02/11/17 17:59 93 21 02/11/17 16:43 98.2 77 16 126/66 (86) 96 02/11/17 11:08 97.7 78 16 121/64 (83) 99 I/O 02/11/17 02/11/17 02/11/17 02/12/17 02/12/17 02/12/17 07:00 15:00 23:00 07:00 15:00 23:00 Intake Total 240 ml 889 ml 480 ml 480 ml Output Total 300 ml 250 ml Balance -60 ml 889 ml 480 ml 230 ml Intake Oral 240 ml 840 ml 480 ml 480 ml IV Total 49 ml Output Urine Total 300 ml 250 ml # Voids 3 2 # Bowel Movements 0 0 0 0 Result Diagram: 02/11/17 0748 02/11/17 0748 Imaging Last 24 hours Impressions Pelvis X-Ray 02/09/171348 Signed Impressions: Service Date/Time: January 13:37 - CONCLUSION: 1. No acute fracture identified. Dick Gallego MD Head CT 02/09/171348 Signed Impressions: Service Date/Time: January 14:04 - CONCLUSION: No acute disease. Pierre Barnes MD Chest X-Ray 02/09/171348 Signed Impressions: Service Date/Time: January 13:37 - CONCLUSION: 1. No acute abnormality identified. Dick Gallego MD Cervical Spine CT 02/09/171348 Signed Impressions: Service Date/Time: January 14:06 - CONCLUSION: No evidence of acute fracture. Chronic degenerative disease at the C5-6 level with narrowing and osteophyte formation. Central disc protrusionat the C4-5 level and a broad-based diffuse annular bulge at C6-7. Ole Martin MD Objective Remarks LLE: dressings clean and dry. intact. swelling improving. neg homans. nvi. sensation intact. Assessment & Plan Ortho Post Op Day #: 2 Problem List: (1) Tibia/fibula fracture ICD Codes: S82.209A - Unspecified fracture of shaft of unspecified tibia, initial encounter for closed fracture; S82.409A - Unspecified fracture of shaft of unspecified fibula, initial encounter for closed fracture Status: Acute Qualifiers: Qualified Codes: S82.209A - Unspecified fracture of shaft of unspecified tibia, initial encounter for closed fracture; S82.409A - Unspecified fracture of shaft of unspecified fibula, initial encounter for closed fracture Assessment and Plan 1) Left proximal tibia shaft fracture s/p IMN - POD 0 -NWB -daily dressing changes -monitory swelling of lower leg -elevate -large ice bags -Toradol 30mg Q8hrs x 3 doses -when swelling appropriate and patient ambulating safely, ok for DC planning to home. ortho cleared -CM for walker -f/u with [facility]ang or PA in 2 weeks Ty Hanks Feb 12, 2017 08:03
[2017-02-12 09:34] VITALS: O2SAT 97
[2017-02-12] MEDS: ENOXAPARIN SODIUM 40 MG/0.4 ML SYRINGE SQ SCH (10:09)
[2017-02-12] MEDS ORDERED: HYDR-3583 PO (10:18)
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
[2017-02-12 12:00] VITALS: BP 165/73; PULSE 98; RESP 20; TEMP 99.9; O2SAT 95
[2017-02-12 16:00] VITALS: BP 138/79; PULSE 88; RESP 20; TEMP 98.1; O2SAT 98
[2017-02-12] MEDS: BISACODYL EC 5 MG TABEC PO SCH (20:42)
[2017-02-12] MEDS: MAGNESIUM HYDROXIDE SUSP 30 ML CUP PO SCH (20:42)
[2017-02-12] MEDS: PRAVASTATIN SOD 80 MG TAB PO SCH (20:42)
[2017-02-12 20:50] VITALS: BP 142/75; PULSE 89; RESP 16; TEMP 99.5; O2SAT 96
[2017-02-13] VITALS (10 sets, daily range): BP systolic 105–131; BP diastolic 56–72; PULSE 78–122; RESP 16–29; TEMP 98.4–104.7; O2SAT 90–100
[2017-02-13] MEDS: ACETAMINOPHEN/HYDROcodone 325 MG/10 MG TAB PO PRN ×5 (00:01→21:14)
--- NOTE | 2017-02-13 06:34 | PD.ORT.PN ---
Subjective Subjective Remarks POD 3 s/p IMN left tibia doing well. pain controlled. out of bed with therapy. Objective Vitals Vital Signs Date Time Temp Pulse Resp B/P (MAP) Pulse Ox O2 Delivery O2 Flow Rate FiO2 02/13/17 00:26 98.7 86 16 126/70 (88) 93 02/12/17 20:50 99.5 89 16 142/75 (97) 96 02/12/17 18:30 16 02/12/17 16:00 98.1 88 20 138/79 (98) 98 02/12/17 12:00 99.9 98 20 165/73 (103) 95 02/12/17 09:34 97 02/12/17 08:00 97.8 91 20 108/63 (78) 94 I/O 02/12/17 02/12/17 02/12/17 02/13/17 02/13/17 02/13/17 07:00 15:00 23:00 07:00 15:00 23:00 Intake Total 480 ml 600 ml 480 ml Output Total 250 ml Balance 230 ml 600 ml 480 ml Intake Oral 480 ml 600 ml 480 ml Output Urine Total 250 ml # Voids 3 2 # Bowel Movements 0 0 0 Result Diagram: 02/11/17 0748 02/11/17 0748 Imaging Last 24 hours Impressions Pelvis X-Ray 02/09/171348 Signed Impressions: Service Date/Time: January 13:37 - CONCLUSION: 1. No acute fracture identified. Dick Gallego MD Head CT 02/09/171348 Signed Impressions: Service Date/Time: January 14:04 - CONCLUSION: No acute disease. Pierre Barnes MD Chest X-Ray 02/09/171348 Signed Impressions: Service Date/Time: January 13:37 - CONCLUSION: 1. No acute abnormality identified. Dick Gallego MD Cervical Spine CT 02/09/171348 Signed Impressions: Service Date/Time: January 14:06 - CONCLUSION: No evidence of acute fracture. Chronic degenerative disease at the C5-6 level with narrowing and osteophyte formation. Central disc protrusionat the C4-5 level and a broad-based diffuse annular bulge at C6-7. Ole Martin MD Objective Remarks LLE: dressings clean and dry. intact. swelling improving. neg homans. nvi. sensation intact. Assessment & Plan Problem List: (1) Tibia/fibula fracture ICD Codes: S82.209A - Unspecified fracture of shaft of unspecified tibia, initial encounter for closed fracture; S82.409A - Unspecified fracture of shaft of unspecified fibula, initial encounter for closed fracture Status: Acute Qualifiers: Qualified Codes: S82.209A - Unspecified fracture of shaft of unspecified tibia, initial encounter for closed fracture; S82.409A - Unspecified fracture of shaft of unspecified fibula, initial encounter for closed fracture Assessment and Plan 1) Left proximal tibia shaft fracture s/p IMN - POD 3 -NWB -daily dressing changes -monitor swelling of lower leg -elevate -large ice bags -ortho cleared for DC home today -CM for walker -f/u with Hoang or PA in 2 weeks Graham Perez Feb 13, 2017 06:34
[2017-02-13] MEDS: VENLAFAXINE HCL XR 75 MG CAP PO SCH (08:14)
[2017-02-13] MEDS: ASCORBIC ACID 500 MG TAB PO SCH (08:15)
[2017-02-13] MEDS: CHOLECALCIFEROL (VIT D3) 1000 UNIT TAB PO SCH (08:15)
[2017-02-13] MEDS: FAMOTIDINE 20 MG TAB PO SCH ×2 (08:15→19:31)
[2017-02-13] MEDS: CALCIUM/VITAMIN D 250 MG/125 U TAB PO SCH ×3 (08:15→17:45)
[2017-02-13] MEDS: DOCUSATE SODIUM 100 MG CAP PO SCH ×2 (08:15→19:31)
[2017-02-13] MEDS: SODIUM CHLORIDE 0.9% FLUSH 10 ML FLUSH IV FLUSH SCH ×2 (08:15→19:32)
[2017-02-13] MEDS: ENOXAPARIN SODIUM 40 MG/0.4 ML SYRINGE SQ SCH (09:48)
--- NOTE | 2017-02-13 09:54 | RADRPT ---
EXAM DATE/TIME: 02/13/2017 09:29 [facility] COMPARISON: TIBIA/FIBULA LEFT (AP/LAT), February 10, 2017, 10:38. INDICATIONS : Shortness of breath. MEDICAL HISTORY : None. SURGICAL HISTORY : None. ENCOUNTER: Subsequent ACUITY: 1 day PAIN SCORE: 0/10 LOCATION: Bilateral chest FINDINGS: A single view of the chest demonstrates the lungs to be symmetrically aerated without evidence of mas s, infiltrate or effusion. The cardiomediastinal contours are unremarkable. Osseous structures are intact. CONCLUSION: 1. No acute cardiopulmonary findings identified. Dick Gallego MD on February 13, 2017 at 9:52 Board Certified Radiologist. This report was verified electronically.
[2017-02-13] MEDS ORDERED: ACETAMINOPHEN 1000 MG/100 ML 100 ML IV ONE (10:00)
[2017-02-13] MEDS ORDERED: SODIUM CHLOR 0.9% 1000 ML INJ 1,000 ML IV ONE (10:15)
[2017-02-13 10:35] LABS: BLOOD, URINE NEG (NEG); COMMENT (UR) CULT NOT INDICATED; CULTURE IF INDICATED CULT NOT INDICATED; GLUCOSE,URINE NEG (NEG); KETONE, URINE NEG (NEG); NITRITE,URINE NEG (NEG); URINE COLOR LIGHT-YELLOW (YELLW/STRAW)
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
--- NOTE | 2017-02-13 11:12 | RADRPT ---
EXAM DATE/TIME: 02/13/2017 10:25 [facility] COMPARISON: No previous studies available for comparison. INDICATIONS : Bilateral leg swelling. MEDICAL HISTORY : Hypercholesterolemia. Renal calculi. Depression. Anxiety. SURGICAL HISTORY : Right knee surgery. Right hand surgery. Recent left tib/fib fracture repair. ENCOUNTER: Initial ACUITY: 1 day PAIN SCORE: 6/10 LOCATION: Bilateral legs. TECHNIQUE: Venous ultrasound of the left and right leg was performed from the inguinal ligament to the proximal calf. Real-time, color Doppler and spectral tracing, compression and augmentation techniques were us ed. FINDINGS: RIGHT LEG: There is normal compressibility of the deep venous system from the inguinal region to the proximal ca lf. No echogenic clot is seen in the lumen of the common femoral, femoral, popliteal, and posterior tibial veins. There is a normal response of the venous system to proximal and distal augmentation an d respiration. LEFT LEG: There is normal compressibility of the deep venous system from the inguinal region to the proximal ca lf. No echogenic clot is seen in the lumen of the common femoral, femoral, popliteal, and posterior tibial veins. There is a normal response of the venous system to proximal and distal augmentation an d respiration. CONCLUSION: Negative for DVT. Luis Daniel Gallego MD FACR on February 13, 2017 at 11:10 Board Certified Radiologist. This report was verified electronically.
[2017-02-13] MEDS: LEVOFLOXACIN 500 MG PREMIX INJ 100 ML IV SCH (11:14)
[2017-02-13 11:15] LABS: AUTOMATED NEUTROPHIL # 2.3 TH/MM3 (1.8-7.7); BASOPHIL % 0.3 % (0.0-2.0); EOSINOPHIL % 1.3 % (0.0-4.0); HEMATOCRIT 32.9 % (39.0-51.0); HEMO FLAGS DIFF FINAL; LYMPH % 11.5 % (9.0-44.0); LYMPHOCYTE # 0.3 TH/MM3 (1.0-4.8); MEAN CELL VOLUME 94.7 FL (80.0-100.0); MEAN CORPUSCULAR HGB CONC 33.7 % (32.0-36.0); NEUT % 85.9 % (16.0-70.0); PLATELET COUNT 158 TH/MM3 (150-450); RED BLOOD COUNT 3.47 MIL/MM3 (4.50-5.90); RED CELL DISTRIBUTION WIDTH 13.5 % (11.6-17.2); WHITE BLOOD COUNT 2.7 TH/MM3 (4.0-11.0)
[2017-02-13 11:31] LABS: ALT (GPT) 29 U/L (12-78); ANION GAP 5 MEQ/L (5-15); AST (GOT) 33 U/L (15-37); BICARBONATE 28.6 MEQ/L (21.0-32.0); BLOOD UREA NITROGEN 13 MG/DL (7-18); CHLORIDE 102 MEQ/L (98-107); GLOMERULAR FILTRATION RATE 77 ML/MIN (>89); POTASSIUM 4.3 MEQ/L (3.5-5.1); SODIUM (NA) 136 MEQ/L (136-145)
[2017-02-13 11:33] LABS: ALKALINE PHOSPHATASE 89 U/L (45-117); TOTAL BILIRUBIN ADULT 0.7 MG/DL (0.2-1.0)
[2017-02-13] MEDS: VANCOMYCIN INJ 1,000 MG in SODIUM CHLOR 0.9% 250 ML INJ 250 ML IV SCH ×2 (12:57→22:53)
[2017-02-13] MEDS ORDERED: ACETAMINOPHEN 1000 MG/100 ML 100 ML IV PRN (13:00)
--- NOTE | 2017-02-13 14:18 | MB ---
cc: EMANUEL NG MD, FRANKLYN F. MD DATE OF CONSULTATION: 02/13/2017 REASON FOR CONSULTATION Pneumonia. HISTORY OF PRESENT ILLNESS This is a 66-year-old white male who was admitted to the hospital after he was found on the ground. The patient sustained a right proximal tibia fracture. He was cutting down a tree at his home and was later found on the ground. He was found also to have a fracture of the tibia and fibula of the left leg. He underwent intramedullary nailing on 02/10/2017. The fracture was a displaced left proximal tibial shaft fracture. The patient was recuperating and was afebrile. This morning, however, he had a temperature spike to 104.7 degrees and he was transferred to the intensive care unit. The patient tells me that he had shaking chills and felt feverish the past two mornings. His white blood cell count was normal since admission; however, the white count dropped to 2.7 today. He was placed on a cooling blanket and transferred to the intensive care unit today. The patient is awake and alert. He denies nausea, vomiting, headache, neck stiffness, cough, shortness of breath, dysuria or diarrhea. He states that he has not had a bowel movement since the surgery. Current temperature with the cooling blanket is 99.7 degrees. Chest x-ray shows no acute infiltrate. Left lower extremity ultrasound shows no evidence of DVT. The patient is eating and has a good appetite. He was started on vancomycin and Levaquin today. He has been receiving Tylenol for fever and also has received hydrocodone/acetominophen for pain. PAST MEDICAL HISTORY Hypercholesteremia. PAST SURGICAL HISTORY None. ALLERGIES IODINE WHICH CAUSED HIM TO BREAK OUT IN A RASH. MEDICATIONS 1. Vancomycin. 2. Levaquin. 3. Tylenol. 4. Pravachol. 5. [place] D. 6. Vitamin-C. 7. Vitamin-D3. 8. Lovenox. 9. Dulcolax. 10.Ergocalciferol. 11.[place] 10. 12.Effexor. 13.Vasotec. 14.Ambien. 15.Pepcid. 16.Colace. SOCIAL HISTORY The patient is . No alcohol. No tobacco. No illicit drugs. FAMILY HISTORY Noncontributory. REVIEW OF SYSTEMS CONSTITUTIONAL: Significant for fever and chills. HEENT: No visual blurring or diplopia. No difficulty swallowing or soreness of the throat. No nasal discharge or bleeding. NECK: No swelling or pain. CARDIOVASCULAR: No palpitation or chest pain. RESPIRATORY: No cough or shortness of breath. GASTROINTESTINAL: No nausea, vomiting, abdominal pain. Positive for constipation. GENITOURINARY: Denies urgency, frequency, dysuria. MUSCULOSKELETAL: Significant for pain in the left leg. ENDOCRINE: Denies polyuria or polydipsia. INTEGUMENTARY: Denies skin rash or itching. NEUROLOGIC: Denies problems with coordination or dizziness. PSYCHIATRIC: Denies mood changes or depression. PHYSICAL EXAMINATION GENERAL: This is a pleasant well-developed male who is in no acute distress. He is awake, alert and oriented. VITAL SIGNS: Temperature 99.6 degrees. BP is normal. EENT: Head is atraumatic. Extraocular movements grossly intact. Pupils reactive to light. No icterus. No conjunctival erythema. Oropharynx moist mucosa without lesions. NECK: Supple. No adenopathy. No swelling. LUNGS: Clear breath sounds bilateral. HEART: Regular rate and rhythm without murmurs, rubs or gallops. ABDOMEN: Bowel sounds present. Firm, nontender. No masses palpable. RECTAL: Not performed. EXTREMITIES: The left leg has 2-3+ swelling including edema at the dorsum of the left foot. No calf tenderness. The other extremities have no clubbing, cyanosis or edema. SKIN: No rash. NEUROLOGIC: Nonfocal. PSYCHIATRIC: The patient is calm and cooperative. LABORATORY WBC 2.7, 85% neutrophils, 11% lymphocytes, 1% monocytes, hemoglobin 11.1, platelets 158. Creatinine 0.97, BUN 13, sodium 136. Liver function tests are normal. Blood culture is pending. IMPRESSION 1. Fever. Questionable etiology in patient who is status post leg trauma and surgery for fracture of the left tibia. No prior fevers before admission. Patient without clear evidence of infectious foci for the fever currently. The patient has negative chest x-ray and no pulmonary symptoms and also denies urinary symptoms as well. 2. Status post intramedullary nailing of a left tibia fracture on 02/10/2017. Questionable association of the fever to the surgery; however, this is not clear at this time. It would be unusual for such a high fever with a postoperative infection. 3. Leukopenia. RECOMMENDATIONS 1. Monitor the temperature. 2. Monitor the blood culture. 3. Continue vancomycin for now. 4. Continue Levaquin for now. 5. Monitor for signs of infection. Also one would want to suspect potential drug fever if the temperature continues to spike as high as previous. Also, if the white count decreases any further we should consider stopping vancomycin which can also have an adverse effect on the white blood cell count. The patient appears clinically stable and does not look toxic currently. Thank for this consultation. I will monitor the progress with you and make further recommendations on follow-up. Anthony Larose MD FD/DAIN /1:31 PM /1:56 PM
[2017-02-13] MEDS ORDERED: SOD PHOSPHATE/SOD BIPHOSPHATE (ADULT) ENEMA 133ML RECTAL ONE (17:00)
[2017-02-13] MEDS: BISACODYL EC 5 MG TABEC PO SCH (19:31)
[2017-02-13] MEDS: MAGNESIUM HYDROXIDE SUSP 30 ML CUP PO SCH (19:31)
[2017-02-13] MEDS: PRAVASTATIN SOD 80 MG TAB PO SCH (19:31)
[2017-02-13] MEDS: ZOLPIDEM TARTRATE 5 MG TAB PO PRN ×2 (19:54)
[2017-02-13] MEDS: diphenhydrAMINE HCL 25 MG CAP PO PRN (22:21)
[2017-02-14] VITALS (13 sets, daily range): BP systolic 107–153; BP diastolic 54–77; PULSE 70–99; RESP 20–27; TEMP 98–103; O2SAT 93–100
[2017-02-14] MEDS: SODIUM CHLORIDE 0.9% FLUSH 10 ML FLUSH IV FLUSH SCH ×2 (09:51→21:41)
[2017-02-14] MEDS: ACETAMINOPHEN/HYDROcodone 325 MG/10 MG TAB PO PRN ×2 (09:52→21:58)
[2017-02-14] MEDS: CALCIUM/VITAMIN D 250 MG/125 U TAB PO SCH ×3 (09:53→17:35)
[2017-02-14] MEDS: ASCORBIC ACID 500 MG TAB PO SCH (09:53)
[2017-02-14] MEDS: DOCUSATE SODIUM 100 MG CAP PO SCH ×2 (09:53→21:00)
[2017-02-14] MEDS: CHOLECALCIFEROL (VIT D3) 1000 UNIT TAB PO SCH (09:54)
[2017-02-14] MEDS: FAMOTIDINE 20 MG TAB PO SCH ×2 (09:55→21:40)
[2017-02-14] MEDS: ENOXAPARIN SODIUM 40 MG/0.4 ML SYRINGE SQ SCH (09:55)
[2017-02-14] MEDS: LEVOFLOXACIN 500 MG PREMIX INJ 100 ML IV SCH (10:01)
[2017-02-14] MEDS: VENLAFAXINE HCL XR 75 MG CAP PO SCH (10:28)
[2017-02-14] MEDS ORDERED: Vancomycin Consult Pharmacy 1 EA OTHER SCH (12:00)
[2017-02-14] MEDS ORDERED: ACETAMINOPHEN 325 MG TAB PO PRN (12:00)
[2017-02-14] MEDS ORDERED: FLUCONAZOLE 400 MG PREMIX BAG 200 ML IV SCH (12:00)
--- NOTE | 2017-02-14 12:16 | HHI.IDPN ---
Note Infectious Disease Note Patient is shivering. Temp currently 102. Awake and alert. Denies other symptom complaints. Post left tibia intramedullary nailing on 02/10/2017. The fracture was a displaced left proximal tibial shaft fracture. PAST MEDICAL HISTORY Hypercholesteremia. PAST SURGICAL HISTORY None. ALLERGIES IODINE WHICH CAUSED HIM TO BREAK OUT IN A RASH. MEDICATIONS 1. Vancomycin. 2. Levaquin. Vital Signs Date Time Temp Pulse Resp B/P (MAP) Pulse Ox O2 Delivery O2 Flow Rate FiO2 02/14/17 06:00 80 02/14/17 04:00 84 02/14/17 04:00 98.1 73 23 114/62 (79) 98 02/14/17 02:00 70 02/14/17 00:00 100.9 82 23 107/54 (71) 93 02/14/17 00:00 86 02/13/17 22:00 82 02/13/17 20:00 99.9 78 18 118/56 (76) 100 02/13/17 20:00 79 02/13/17 19:00 Room Air 02/13/17 18:00 78 02/13/17 16:00 86 02/13/17 16:00 98.4 84 25 105/72 (83) 99 02/13/17 14:00 88 02/13/17 13:00 100 Nasal Cannula 02/13/17 12:24 22 02/14/17 02/14/17 02/15/17 15:00 23:00 07:00 Intake Total 350 ml Balance 350 ml IV Total 350 ml Laboratory Tests Test 02/13/17 11:00 White Blood Count 2.7 TH/MM3 Red Blood Count 3.47 MIL/MM3 Hemoglobin 11.1 GM/DL Hematocrit 32.9 % Mean Corpuscular Volume 94.7 FL Mean Corpuscular Hemoglobin 32.0 PG Mean Corpuscular Hemoglobin Concent 33.7 % Red Cell Distribution Width 13.5 % Platelet Count 158 TH/MM3 Mean Platelet Volume 7.0 FL Neutrophils (%) (Auto) 85.9 % Lymphocytes (%) (Auto) 11.5 % Monocytes (%) (Auto) 1.0 % Eosinophils (%) (Auto) 1.3 % Basophils (%) (Auto) 0.3 % Neutrophils # (Auto) 2.3 TH/MM3 Lymphocytes # (Auto) 0.3 TH/MM3 Monocytes # (Auto) 0.0 TH/MM3 Eosinophils # (Auto) 0.0 TH/MM3 Basophils # (Auto) 0.0 TH/MM3 CBC Comment DIFF FINAL Differential Comment Laboratory Tests Test 02/13/17 11:00 Blood Urea Nitrogen 13 MG/DL Creatinine 0.97 MG/DL Random Glucose 105 MG/DL Total Protein 6.4 GM/DL Albumin 3.1 GM/DL Calcium Level 8.4 MG/DL Alkaline Phosphatase 89 U/L Aspartate Amino Transf (AST/SGOT) 33 U/L Alanine Aminotransferase (ALT/SGPT) 29 U/L Total Bilirubin 0.7 MG/DL Sodium Level 136 MEQ/L Potassium Level 4.3 MEQ/L Chloride Level 102 MEQ/L Carbon Dioxide Level 28.6 MEQ/L Anion Gap 5 MEQ/L Estimat Glomerular Filtration Rate 77 ML/MIN Lactic Acid Level 2.0 mmol/L Total Creatine Kinase 403 U/L Creatine Kinase MB 1.0 NG/ML Creatine Kinase MB % 0.2 % Microbiology Date/Time Source Procedure Growth Status 02/13/17 12:00 Blood Peripheral Aerobic Blood Culture - Preliminary NO GROWTH IN 1 DAY Resulted 02/13/17 12:00 Blood Peripheral Anaerobic Blood Culture - Preliminary NO GROWTH IN 1 DAY Resulted 02/13/17 11:53 Blood Peripheral Aerobic Blood Culture - Preliminary NO GROWTH IN 1 DAY Resulted 02/13/17 11:53 Blood Peripheral Anaerobic Blood Culture - Preliminary NO GROWTH IN 1 DAY Resulted IMPRESSION: Lower Extremity Ultrasound 02/13/17 0000 Signed Impressions: Service Date/Time: Monday, February 13, 2017 10:25 - CONCLUSION: Negative for DVT. Luis Daniel Gallego MD FACR Chest X-Ray 02/13/17 0000 Signed Impressions: Service Date/Time: Monday, February 13, 2017 09:29 - CONCLUSION: 1. No acute cardiopulmonary findings identified. Dick Gallego MD Tibia/Fibula X-Ray 02/10/17 0000 Signed Impressions: Service Date/Time: Friday, February 10, 2017 10:38 - CONCLUSION: Anatomic alignment with IM pedro in good position. Luis Daniel Glalego MD FACR Pelvis X-Ray 02/09/17 1349 Signed Impressions: Service Date/Time: January 13:37 - CONCLUSION: 1. No acute fracture identified. Dick Gallego MD Head CT 02/09/17 1349 Signed Impressions: Service Date/Time: January 14:04 - CONCLUSION: No acute disease. Pierre Barnes MD Cervical Spine CT 02/09/17 1349 Signed Impressions: Service Date/Time: January 14:06 - CONCLUSION: No evidence of acute fracture. Chronic degenerative disease at the C5-6 level with narrowing and osteophyte formation. Central disc protrusionat the C4-5 level and a broad-based diffuse annular bulge at C6-7. Ole Martin MD Abdomen/Pelvis CT 02/09/17 0000 Signed Impressions: Service Date/Time: January 14:11 - CONCLUSION: Normal examination. Ole Martin MD PHYSICAL EXAMINATION GENERAL: Distressed by shivering. He is awake, alert and oriented. HEENT: Head is atraumatic. Extraocular movements grossly intact. Pupils reactive to light. No icterus. No conjunctival erythema. Oropharynx moist mucosa without lesions. NECK: Supple. No adenopathy. No swelling. LUNGS: Clear breath sounds. HEART: Regular rate and rhythm without murmurs, rubs or gallops. ABDOMEN: Bowel sounds present. Firm, nontender. No masses palpable. EXTREMITIES: The left leg has 2-3+ swelling including edema at the dorsum of the left foot. No calf tenderness. The other extremities have no clubbing, cyanosis or edema. SKIN: No rash. NEUROLOGIC: Nonfocal. PSYCHIATRIC: The patient is calm and cooperative. IMPRESSION 1. Fever. Questionable etiology in patient who is status post leg trauma and surgery for fracture of the left tibia. 2. Status post intramedullary nailing of a left tibia fracture on 02/10/2017. Questionable association of the fever to the surgery; however, this is not clear at this time. 3. Leukopenia. RECOMMENDATIONS 1. Monitor the temperature. 2. Monitor the blood culture from 02/13. Repeat blood culture today. 3. Continue vancomycin for now. 4. Continue Levaquin for now. 5. Add Diflucan IV. 6. influenza test. 7. Follow WBC. 8. Pharmacy to manage vancomycin. Anthony Larose MD Feb 14, 2017 12:16
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
[2017-02-14] MEDS: VANCOMYCIN INJ 1,000 MG in SODIUM CHLOR 0.9% 250 ML INJ 250 ML IV SCH ×2 (13:39→23:11)
[2017-02-14 13:46] LABS: AUTOMATED NEUTROPHIL # 4.7 TH/MM3 (1.8-7.7); BASOPHIL % 0.5 % (0.0-2.0); EOSINOPHIL # 0.1 TH/MM3 (0-0.4); HEMATOCRIT 33.4 % (39.0-51.0); HEMO FLAGS DIFF FINAL; LYMPH % 7.8 % (9.0-44.0); LYMPHOCYTE # 0.4 TH/MM3 (1.0-4.8); MEAN CELL VOLUME 93.8 FL (80.0-100.0); MEAN CORPUSCULAR HEMOGLOBIN 32.4 PG (27.0-34.0); MEAN CORPUSCULAR HGB CONC 34.6 % (32.0-36.0); MONO % 5.6 % (0.0-8.0); NEUT % 85.1 % (16.0-70.0); PLATELET COUNT 159 TH/MM3 (150-450); RED BLOOD COUNT 3.56 MIL/MM3 (4.50-5.90); WHITE BLOOD COUNT 5.6 TH/MM3 (4.0-11.0)
[2017-02-14 14:12] LABS: ALT (GPT) 39 U/L (12-78); ANION GAP 8 MEQ/L (5-15); AST (GOT) 44 U/L (15-37); CHLORIDE 103 MEQ/L (98-107); GLOMERULAR FILTRATION RATE 68 ML/MIN (>89); POTASSIUM 4.5 MEQ/L (3.5-5.1); SODIUM (NA) 137 MEQ/L (136-145)
[2017-02-14 14:13] LABS: BLOOD UREA NITROGEN 16 MG/DL (7-18)
[2017-02-14 14:14] LABS: ALKALINE PHOSPHATASE 105 U/L (45-117); TOTAL BILIRUBIN ADULT 0.7 MG/DL (0.2-1.0)
[2017-02-14] MEDS: MAGNESIUM HYDROXIDE SUSP 30 ML CUP PO SCH (21:00)
[2017-02-14] MEDS: BISACODYL EC 5 MG TABEC PO SCH (21:00)
[2017-02-14] MEDS: PRAVASTATIN SOD 80 MG TAB PO SCH (21:40)
[2017-02-14] MEDS: ZOLPIDEM TARTRATE 5 MG TAB PO PRN (21:40)
[2017-02-14] MEDS: diphenhydrAMINE HCL 25 MG CAP PO PRN (21:40)
[2017-02-15] VITALS: BP 160/80; PULSE 65; RESP 24; TEMP 98.2; O2SAT 96
[2017-02-15 02:00] VITALS: PULSE 65; PULSE 69
[2017-02-15 04:00] VITALS: BP 130/83; PULSE 74; RESP 15; TEMP 97.4; O2SAT 98
[2017-02-15] MEDS: ACETAMINOPHEN/HYDROcodone 325 MG/10 MG TAB PO PRN (04:08)
[2017-02-15 05:16] LABS: HEMATOCRIT 29.4 % (39.0-51.0); MEAN CELL VOLUME 94.3 FL (80.0-100.0); MEAN CORPUSCULAR HEMOGLOBIN 32.7 PG (27.0-34.0); MEAN CORPUSCULAR HGB CONC 34.6 % (32.0-36.0); PLATELET COUNT 173 TH/MM3 (150-450); RED BLOOD COUNT 3.12 MIL/MM3 (4.50-5.90); RED CELL DISTRIBUTION WIDTH 13.4 % (11.6-17.2); WHITE BLOOD COUNT 5.4 TH/MM3 (4.0-11.0)
[2017-02-15 05:30] LABS: ALT (GPT) 32 U/L (12-78); ANION GAP 6 MEQ/L (5-15); AST (GOT) 33 U/L (15-37); BICARBONATE 24.7 MEQ/L (21.0-32.0); BLOOD UREA NITROGEN 13 MG/DL (7-18); CHLORIDE 108 MEQ/L (98-107); GLOMERULAR FILTRATION RATE 88 ML/MIN (>89); POTASSIUM 4.3 MEQ/L (3.5-5.1); SODIUM (NA) 139 MEQ/L (136-145)
[2017-02-15 05:31] LABS: ALKALINE PHOSPHATASE 87 U/L (45-117); HEMO FLAGS AUTO DIFF; TOTAL BILIRUBIN ADULT 0.6 MG/DL (0.2-1.0)
[2017-02-15 06:00] VITALS: PULSE 70
[2017-02-15 07:54] LABS: BANDS 5 % (0-6); BASOPHILS 1 % (0-2); EOSINOPHILS 2 % (0-4); METAMYELOCYTES 1 % (0-1); NEUTROPHIL # MANUAL DIFF 3.7 TH/MM3 (1.8-7.7); PLATELET ESTIMATE SMEAR NORMAL (NORMAL); PLATELET MORPHOLOGY NORMAL (NORMAL); POLYS (SEG NEUTROPHILS) 63 % (16-70); SCAN/DIFF FINAL DIFF MANUAL; WBC DIFF SAMPLE 100
[2017-02-15 08:00] VITALS: BP 159/73; PULSE 68; RESP 18; TEMP 98; O2SAT 97
[2017-02-15] MEDS: VENLAFAXINE HCL XR 75 MG CAP PO SCH (08:36)
[2017-02-15] MEDS: FAMOTIDINE 20 MG TAB PO SCH (08:37)
[2017-02-15] MEDS: DOCUSATE SODIUM 100 MG CAP PO SCH (08:37)
[2017-02-15] MEDS: ASCORBIC ACID 500 MG TAB PO SCH (08:37)
[2017-02-15] MEDS: CHOLECALCIFEROL (VIT D3) 1000 UNIT TAB PO SCH (08:37)
[2017-02-15] MEDS: CALCIUM/VITAMIN D 250 MG/125 U TAB PO SCH (08:37)
[2017-02-15] MEDS: ENOXAPARIN SODIUM 40 MG/0.4 ML SYRINGE SQ SCH (08:38)
[2017-02-15] MEDS: SODIUM CHLORIDE 0.9% FLUSH 10 ML FLUSH IV FLUSH SCH (08:38)
[2017-02-15 10:00] VITALS: PULSE 82
[2017-02-15] MEDS ORDERED: LEVOFLOXACIN 500 MG TAB PO SCH (10:00)
--- NOTE | 2017-02-15 10:13 | RADRPT ---
EXAM DATE/TIME: 02/15/2017 09:18 [facility] COMPARISON: CHEST SINGLE AP, February 13, 2017, 9:29. INDICATIONS : Short of breath, intermittant fevers. MEDICAL HISTORY : Hypercholesterolemia. depression, anxiety, renal calculi SURGICAL HISTORY : recent tib/fib fracture ENCOUNTER: Initial ACUITY: 4 - 6 days PAIN SCORE: 0/10 LOCATION: Bilateral chest FINDINGS: A single view of the chest demonstrates the lungs to be symmetrically aerated without evidence of mas s, infiltrate or effusion. The cardiomediastinal contours are unremarkable. Osseous structures are intact. CONCLUSION: 1. No acute cardiopulmonary findings. Dick Gallego MD on February 15, 2017 at 10:08 Board Certified Radiologist. This report was verified electronically.
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
[2017-02-15] MEDS ORDERED: PHARMACY ORDERED LAB ONE (11:45)
[2017-02-15] MEDS ORDERED: LEVA500T20 PO (13:28)
[2017-02-15] MEDS ORDERED: DIFL200T PO (13:28)
[2017-02-15] MEDS ORDERED: FLUCONAZOLE 200 MG TAB PO SCH (14:00)
[2017-02-15] MEDS ORDERED: WHEEMIS3 (14:30)
--- NOTE | 2017-02-15 14:43 | HHI.IDPN ---
Note Infectious Disease Note Patient feels better. Currently afebrile. Awake and alert. No new complaints. No SOB. Post left tibia intramedullary nailing on 02/10/2017. The fracture was a displaced left proximal tibial shaft fracture. PAST MEDICAL HISTORY Hypercholesteremia. PAST SURGICAL HISTORY None. ALLERGIES IODINE WHICH CAUSED HIM TO BREAK OUT IN A RASH. MEDICATIONS 1. Vancomycin. 2. Levaquin. 3. Diflucan. OBJECTIVE: Vital Signs Date Time Temp Pulse Resp B/P (MAP) Pulse Ox O2 Delivery O2 Flow Rate FiO2 02/15/17 10:00 82 02/15/17 08:00 68 02/15/17 08:00 98.0 68 18 159/73 (101) 97 02/15/17 06:00 70 02/15/17 04:00 97.4 74 15 130/83 (99) 98 02/15/17 04:00 74 02/15/17 02:00 69 02/15/17 02:00 65 02/15/17 00:00 65 02/15/17 00:00 98.2 65 24 160/80 (106) 96 02/14/17 22:00 80 02/14/17 20:00 82 02/14/17 20:00 98.9 80 22 153/77 (102) 99 02/14/17 18:00 71 02/14/17 16:00 83 02/14/17 16:00 98.0 83 27 153/76 (101) 100 Laboratory Tests Test 02/14/17 13:09 02/15/17 04:02 White Blood Count 5.6 TH/MM3 5.4 TH/MM3 Red Blood Count 3.56 MIL/MM3 3.12 MIL/MM3 Hemoglobin 11.5 GM/DL 10.2 GM/DL Hematocrit 33.4 % 29.4 % Mean Corpuscular Volume 93.8 FL 94.3 FL Mean Corpuscular Hemoglobin 32.4 PG 32.7 PG Mean Corpuscular Hemoglobin Concent 34.6 % 34.6 % Red Cell Distribution Width 13.0 % 13.4 % Platelet Count 159 TH/MM3 173 TH/MM3 Mean Platelet Volume 8.0 FL 7.8 FL Neutrophils (%) (Auto) 85.1 % Lymphocytes (%) (Auto) 7.8 % Monocytes (%) (Auto) 5.6 % Eosinophils (%) (Auto) 1.0 % Basophils (%) (Auto) 0.5 % Neutrophils # (Auto) 4.7 TH/MM3 Lymphocytes # (Auto) 0.4 TH/MM3 Monocytes # (Auto) 0.3 TH/MM3 Eosinophils # (Auto) 0.1 TH/MM3 Basophils # (Auto) 0.0 TH/MM3 CBC Comment DIFF FINAL AUTO DIFF Differential Comment FINAL DIFF MANUAL Hematology Comments Differential Total Cells Counted 100 Neutrophils % (Manual) 63 % Band Neutrophils % 5 % Lymphocytes % 19 % Monocytes % 9 % Eosinophils % 2 % Basophils % 1 % Neutrophils # (Manual) 3.7 TH/MM3 Metamyelocytes 1 % Platelet Estimate NORMAL Platelet Morphology Comment NORMAL Laboratory Tests Test 02/14/17 13:09 02/15/17 04:02 Blood Urea Nitrogen 16 MG/DL 13 MG/DL Creatinine 1.09 MG/DL 0.87 MG/DL Random Glucose 107 MG/DL 103 MG/DL Total Protein 6.4 GM/DL 6.1 GM/DL Albumin 3.2 GM/DL 2.7 GM/DL Calcium Level 8.2 MG/DL 8.2 MG/DL Alkaline Phosphatase 105 U/L 87 U/L Aspartate Amino Transf (AST/SGOT) 44 U/L 33 U/L Alanine Aminotransferase (ALT/SGPT) 39 U/L 32 U/L Total Bilirubin 0.7 MG/DL 0.6 MG/DL Sodium Level 137 MEQ/L 139 MEQ/L Potassium Level 4.5 MEQ/L 4.3 MEQ/L Chloride Level 103 MEQ/L 108 MEQ/L Carbon Dioxide Level 26.0 MEQ/L 24.7 MEQ/L Anion Gap 8 MEQ/L 6 MEQ/L Estimat Glomerular Filtration Rate 68 ML/MIN 88 ML/MIN Microbiology Date/Time Source Procedure Growth Status 02/14/17 13:09 Blood Peripheral Aerobic Blood Culture - Preliminary NO GROWTH IN 1 DAY Resulted 02/14/17 13:09 Blood Peripheral Anaerobic Blood Culture - Preliminary NO GROWTH IN 1 DAY Resulted 02/13/17 12:00 Blood Peripheral Aerobic Blood Culture - Preliminary NO GROWTH IN 2 DAYS Resulted 02/13/17 12:00 Blood Peripheral Anaerobic Blood Culture - Preliminary NO GROWTH IN 2 DAYS Resulted 02/13/17 11:53 Blood Peripheral Aerobic Blood Culture - Preliminary NO GROWTH IN 2 DAYS Resulted 02/13/17 11:53 Blood Peripheral Anaerobic Blood Culture - Preliminary NO GROWTH IN 2 DAYS Resulted 02/14/17 19:50 Nasal Washing Influenza Types A,B Antigen (KAVITHA) - Final NEGATIVE FOR FLU A AND B ANTIGEN.... Complete IMPRESSION: Chest X-Ray 02/15/17 0000 Signed Impressions: Service Date/Time: Wednesday, February 15, 2017 09:18 - CONCLUSION: 1. No acute cardiopulmonary findings. Dick Gallego MD Lower Extremity Ultrasound 02/13/17 0000 Signed Impressions: Service Date/Time: Monday, February 13, 2017 10:25 - CONCLUSION: Negative for DVT. Luis Daniel Gallego MD FACR Chest X-Ray 02/13/17 0000 Signed Impressions: Service Date/Time: Monday, February 13, 2017 09:29 - CONCLUSION: 1. No acute cardiopulmonary findings identified. Dick Gallego MD Tibia/Fibula X-Ray 02/10/17 0000 Signed Impressions: Service Date/Time: Friday, February 10, 2017 10:38 - CONCLUSION: Anatomic alignment with IM pedro in good position. Luis Daniel Gallego MD FACR Pelvis X-Ray 02/09/17 1349 Signed Impressions: Service Date/Time: January 13:37 - CONCLUSION: 1. No acute fracture identified. Dick Gallego MD Head CT 02/09/17 1349 Signed Impressions: Service Date/Time: January 14:04 - CONCLUSION: No acute disease. Pierre Barnes MD Cervical Spine CT 02/09/17 1349 Signed Impressions: Service Date/Time: January 14:06 - CONCLUSION: No evidence of acute fracture. Chronic degenerative disease at the C5-6 level with narrowing and osteophyte formation. Central disc protrusionat the C4-5 level and a broad-based diffuse annular bulge at C6-7. Ole Martin MD Abdomen/Pelvis CT 02/09/17 0000 Signed Impressions: Service Date/Time: January 14:11 - CONCLUSION: Normal examination. Ole Martin MD PHYSICAL EXAMINATION GENERAL: No acute distress, awake, alert and oriented. HEENT: No icterus. No conjunctival erythema. Oropharynx moist mucosa without lesions. NECK: Supple. No adenopathy. No swelling. LUNGS: Clear breath sounds. HEART: Regular rate and rhythm without murmurs, rubs or gallops. ABDOMEN: Bowel sounds present. Firm, nontender. No masses palpable. EXTREMITIES: The left leg has 2+ swelling including edema at the dorsum of the left foot. No calf tenderness. The other extremities have no clubbing, cyanosis or edema. SKIN: No rash. NEUROLOGIC: Nonfocal. PSYCHIATRIC: Calm and cooperative. IMPRESSION 1. Fever. Questionable etiology in patient who is status post leg trauma and surgery for fracture of the left tibia. Negative cultures. 2. Status post intramedullary nailing of a left tibia fracture on 02/10/2017. Questionable association of the fever to the surgery; however, this is not clear at this time. 3. Leukopenia. WBC stable. Stable. RECOMMENDATIONS Okay to discharge on PO Levaquin and Fluconazole. Anthony Larose MD Feb 15, 2017 14:43
== END 2017-02-15 18:08 | disposition home health service (06) | DRG 492 ==
LOC: NEPI 13:44 → EDBD 14:58 → NEDA 14:58 → N06A 17:29 → N03A 02-13 10:26
PROVIDERS: ADMIT Surgery; ATTEND Surgery
PROC: 0QSH06Z Reposition Left Tibia with Intramedullary Internal Fixation Device, Open Approach (ICD-10-PCS; principal; 2017-02-10 09:03)
DX: S82.252A Displaced comminuted fracture of shaft of left tibia, initial encounter for closed fracture (principal); J12.9 Viral pneumonia, unspecified; S06.0X9A Concussion with loss of consciousness of unspecified duration, initial encounter; R41.2 Retrograde amnesia; E78.00 Pure hypercholesterolemia, unspecified; S82.452A Displaced comminuted fracture of shaft of left fibula, initial encounter for closed fracture; D72.819 Decreased white blood cell count, unspecified; R50.9 Fever, unspecified; W20.8XXA Other cause of strike by thrown, projected or falling object, initial encounter; Y93.H2 Activity, gardening and landscaping; Z23 Encounter for immunization
CPT/HCPCS: 29505; 70450; 71010; 72125; 72170; 73590; 74176; 76000; 76937; 80048; 80053; 81001; 82435; 82550; 82552; 82565; 82947; 83605; 84132; 84295; 84520; 85007; 85025; 85027; 85610; 85730; 86850; 86900; 86901; 87040; 87804; 90471; 90686; 93005; 93970; 94150; 96374; 96375; 99291; C1713; G0008; G0390; J0131; J0360; J0690; J1100; J1170; J1450; J1580; J1650; J1885; J1956; J2175; J2250; J2270; J2405; J2710; J3010; J3370; J7030; J7050; J7120; Q2038